=== PATIENT | male | born 1965 | race Caucasian/White ===

== ENCOUNTER 2016-07-10 09:52 | Observation (INO) | payer MEDICAID ==
[2016-07-10] MEDS ORDERED: ONDANSETRON HCL IV 4 MG/2 ML VIAL IVP ONE ×2 (09:58→15:24)
[2016-07-10] MEDS ORDERED: 0.9 % SODIUM CHLORIDE 1,000 ML BAG IV ONE ×2 (09:58→10:37)
--- NOTE | 2016-07-10 10:07 | Emergency Department Record ---
History of Present Illness - General Chief complaint: Vomiting Stated complaint: VOMITING Time Seen by Provider: 07/10/16 09:57 Source: Patient, Family Mode of Arrival: Wheelchair Limitations: No limitations - History of Present Illness Initial comments: 51 yo male presents with vertigo, nausea and vomiting for the last 3 days. He reports many years of vertigo that effect him most of the time. It has been increased the last 3 days causing nausea and vomiting. He has had some associated diarrhea as well. No other new or atypical symptoms. He takes Antivert 4 times daily normally. No fevers. No blood in the vomit or diarrhea. MD complaint: Nausea, Vomiting -: Days(s) (3) Description of Vomiting: Watery Description of Diarrhea: Water Location: Epigastric Radiation: None Quality: Aching Improves with: None Worsens with: Eating Context: Other (long history of vertigo) Associated Symptoms: Malaise, Nausea/vomiting - Related Data Home Medications Medication Instructions Recorded Confirmed Last Taken Nitroglycerin [Nitrostat] 0.4 mg SL ASDIR 09/03/14 07/10/16 Unknown Epinephrine [Epipen] 0.3 mg IM ASDIR PRN 05/05/15 07/10/16 Unknown Ondansetron [Zofran Odt] 4 mg PO Q8H PRN tab NS 08/29/15 07/10/16 Unknown Previous Rx's Medication Instructions Recorded Albuterol Sulfate [Ventolin Hfa] 1 - 2 puff IH .EVERY 4-6 HRS PRN 05/05/15 #1 inhaler Inhaler, Assist Devices [Space 1 each MC ASDIR #1 spacer 05/05/15 Chamber Plus] Allergies Allergy/AdvReac Type Severity Reaction Status Date / Time metformin AdvReac Intermediate HEADACHE Verified 07/10/16 10:01 tiotropium bromide AdvReac Mild nose bleeds Verified 07/10/16 10:01 [From Spiriva with HandiHaler] Review of Systems Constitutional: Denies: Chills, Fever, Malaise, Night sweats, Weakness Eyes: Denies: Eye discharge, Eye pain, Photophobia, Vision change ENT: Denies: Congestion, Throat pain Respiratory: Denies: Cough, Dyspnea, Hemoptysis, Stridor, Wheezes Cardiovascular: Denies: Chest pain, Edema, Palpitations, Syncope Endocrine: Reports: Fatigue Gastrointestinal: Reports: Abdominal pain, Diarrhea, Nausea, Vomiting. Denies: Hematemesis, Hematochezia, Melena Genitourinary: Denies: Dysuria, Frequency, Hematuria Musculoskeletal: Denies: Arthralgia, Back pain, Myalgia, Neck pain Skin: Denies: Bruising, Change in color, Rash Neurological: Reports: Vertigo. Denies: Headache, Numbness, Seizure, Tingling Psychiatric: Denies: Anxiety Hematological/Lymphatic: Denies: Blood Clots, Easy bleeding, Easy bruising, Swollen glands Past Medical History - SOCIAL HISTORY Smoking Status: Current every day smoker - RESPIRATORY Hx Respiratory Disorders: Yes Hx COPD: Yes - CARDIOVASCULAR Hx Cardio Disorders: Yes Comment:: angina - NEURO Hx Neuro Disorders: Yes Hx Dizziness: Yes Hx Headaches: Yes (migraines) - GI Hx GI Disorders: Yes Hx Diverticulitis: Yes Hx Pancreatitis: Yes - Hx Genitourinary Disorders: No Comment:: frequent urination - ENDOCRINE Hx Endocrine Disorders: Yes Hx Diabetes: Yes (type 2) - MUSCULOSKELETAL Hx Musculoskeletal Disorders: Yes Hx Arthritis: Yes - PSYCH Hx Psych Problems: Yes Hx Anxiety: Yes Hx Depression: Yes - HEMATOLOGY/ONCOLOGY Hx Hematology/Oncology Disorders: No Family Medical History Hx Alcohol Use: Mother, Brother/Sister Hx Anxiety: Mother, Brother/Sister, Grandparents Hx Cancer: Grandparents Hx Dementia: Grandparents Hx Depression: Mother, Brother/Sister Hx Diabetes: Mother, Brother/Sister Hx Heart Disease: Mother Hx HTN: Father, Mother, Brother/Sister, Grandparents Hx Resp Disorders: Mother Hx Stroke: Grandparents Physical Exam - General General Appearance: Alert, Oriented x3, Cooperative, No acute distress Limitations: No limitations - Head Head exam: Atraumatic, Normocephalic, Normal inspection - Eye Eye exam: Normal appearance. negative: Conjunctival injection, Periorbital swelling, Scleral icterus - ENT ENT exam: Normal exam, Mucous membranes moist Ear exam: Normal external inspection Nasal Exam: Normal inspection Mouth exam: Normal external inspection Teeth exam: Normal inspection Throat exam: Normal inspection - Neck Neck exam: Normal inspection, Full ROM. negative: Tenderness - Respiratory Respiratory exam: Normal lung sounds bilaterally. negative: Respiratory distress - Cardiovascular Cardiovascular Exam: Regular rate, Normal rhythm, Normal heart sounds Peripheral Pulses: 1+: Radial (R), Radial (L) - GI/Abdominal GI/Abdominal exam: Soft, Tenderness (mild epigastric tenderness). negative: Guarding - Rectal Rectal exam: Deferred - exam: Deferred - Extremities Extremities exam: Normal inspection, Full ROM, Normal capillary refill. negative: Tenderness - Back Back exam: Reports: Normal inspection, Full ROM. Denies: CVA tenderness (R), CVA tenderness (L), Muscle spasm, Rash noted, Tenderness - Neurological Neurological exam: Alert, CN II-XII intact, Oriented X3. negative: Altered, Motor sensory deficit - Psychiatric Psychiatric exam: Normal affect, Normal mood - Skin Skin exam: Dry, Intact, Normal color, Warm Course - Reevaluation(s) Reevaluation #1: The patient was seen and examined with room spinning, nausea and vomiting. He reports a long history of chronic vertigo that he takes Antivert 4 times daily. 07/10/16 10:04 Reevaluation #2: The labs were reviewed. The patient is not acidotic as his pH is 7.43. His glucose is elevated at 391. His HCO3 is normal with a AG of 22 and ketones demonstrating dehydration. WBC on CBC 18. 07/10/16 10:36 The patient reports doing better with improved nausea. He still has some epigastric discomfort. Second liter and GI cocktail ordered. 07/10/16 10:40 Reevaluation #3: The burning resolved with the GI cocktail. His nausea is controlled and will try PO Antivert. 07/10/16 10:57 Reevaluation #4: The patient is still dizzy on standing. HCT ordered. 07/10/16 12:33 The glucose was recheck at 236 the HCT was negative for acute changes. Prior old stable disease noted Given his persistent vertigo recommend admission for symptomatic care until 07/10/16 13:12 Reevaluation #5: I JAYME Mirza of the [facility]. We discussed the case for OBV for intractable vertigo, nausea, hyperglycemia, leukocytosis 07/10/16 13:26 Medical Decision Making - Lab Data Result diagrams: 07/11/16 06:30 07/11/16 06:30 Disposition Disposition: Admit Clinical Impression: Vertigo, Diabetes mellitus, insulin dependent (IDDM), uncontrolled, Hypertension, Nausea and vomiting Disposition: Still a Patient at [facility] Decision to Admit: Admit from ER Decision to Admit Date: 07/10/16 Decision to Admit Time: 13:28 Condition: (1) Good Time of Disposition: 13:28
[2016-07-10 10:10] LABS: BASO % 0.1 % (0-6); HEMATOCRIT 52.4 % (42.0-52.0); HEMOGLOBIN 17.8 gm/dl (14.0-18.0); LYMPH % 8.1 % (16-45); MEAN PLATELET VOLUME 11.5 fl (7.4-10.4); MONO % 6.8 % (0-9); PLATELET COUNT 263 K/uL (130-400); RED BLOOD COUNT 6.39 M/uL (4.40-5.70); RED CELL DISTRIBUTION WIDTH 15.3 % (11.5-14.5); WHITE BLOOD COUNT W/O DIFF 18.4 K/uL (4.2-12.2)
[2016-07-10 10:27] LABS: ALB/GLOB RATIO 1.4 (1.1-1.8); ALBUMIN 5.3 gm/dL (3.5-5.0); ALKALINE PHOSPHATASE 150 U/L (38-126); ALT/SGPT 28 U/L (21-72); ANION GAP 22.1 (7-16); AST/SGOT 27 U/L (17-59); BILIRUBIN,TOTAL 0.98 mg/dL (0.2-1.3); BLOOD UREA NITROGEN 18 mg/dL (9-20); CARBON DIOXIDE 29.9 mmol/L (22-30); CREATININE 0.9 mg/dL (0.66-1.25); EST GLOMERULAR FILTRATION RATE > 60 ml/min; GLUCOSE,RANDOM 391 mg/dL (70-110)
[2016-07-10 10:28] LABS: ACETONE,SERUM POS (NEGATIVE)
[2016-07-10 10:31] LABS: MEAN CORPUSCULAR HEMOGLOBIN 27.8 pg (27-33)
[2016-07-10] MEDS ORDERED: HUMULIN R 100 UNIT/ML VIAL SQ ONE (10:37)
[2016-07-10] MEDS ORDERED: HUMULIN R 100 UNIT/ML VIAL SC ONE (10:37)
[2016-07-10] MEDS ORDERED: MAGNESIUM HYDROXIDE/AL HYDROX 10.0001 ML, LIDOCAINE VISC 2% 200 MG, PHENOBARB/HYOSCY/AT... PO ONE ×3 (10:39)
[2016-07-10] MEDS ORDERED: MECLIZINE 25 MG TABLET PO ONE (10:58)
[2016-07-10] MEDS ORDERED: POTASSIUM BICARB./CIT AC 25 MEQ EFF.TAB PO STA (11:16)
[2016-07-10] MEDS ORDERED: HYDROCODONE/APAP 7.5/325MG TABLET PO ONE (12:39)
[2016-07-10] MEDS ORDERED: IPRATROPIUM/ALBUTEROL (0.5MG/3MG) NEB INH PRN (14:31)
[2016-07-10] MEDS ORDERED: MORPHINE SULFATE 5 MG/ML PFS IVP ONE (15:24)
[2016-07-10] MEDS: SOD CHLOR 0.9% WITH KCL 40MEQ 40 MEQ in 0.9 % SODIUM CHLORIDE 1000ML 1 BAG IV ONE ×2 (16:15→22:46)
[2016-07-10] MEDS: MECLIZINE 25 MG TABLET PO SCH ×2 (18:18→19:59)
[2016-07-10] MEDS: PREGABALIN 100 MG PO SCH ×2 (18:18→23:08)
[2016-07-10] MEDS ORDERED: PREGABALIN 50 MG CAPSULE PO ONE (18:18)
[2016-07-10] MEDS ORDERED: SUCRALFATE 1 G/10 ML UD PO ONE (18:20)
[2016-07-10] MEDS: Non-Formulary MISC (Sucralfate [Carafate] 1 GM) PO SCH ×2 (18:20→23:08)
[2016-07-10] MEDS ORDERED: LORAZEPAM 2 MG/ML VIAL IV PRN (19:07)
[2016-07-10] MEDS: ONDANSETRON HCL IV 4 MG/2 ML VIAL IVP PRN (21:27)
[2016-07-10] MEDS ORDERED: INSULIN GLARGINE HUM REC ANLOG 60 UNIT SQ SCH (22:00)
[2016-07-10] MEDS ORDERED: Non-Formulary MISC (Atorvastatin Calcium [Lipitor] 10 MG) PO SCH (22:00)
[2016-07-10] MEDS ORDERED: Non-Formulary MISC (Budesonide/Formoterol Fumarate [Symbicort 160-4.5 Mcg Inhaler] 2 PUF IH SCH (22:00)
[2016-07-10] MEDS ORDERED: AMITRIPTYLINE HCL 100 MG PO SCH (22:00)
[2016-07-10] MEDS ORDERED: CILOSTAZOL 50 MG PO SCH (22:00)
[2016-07-10] MEDS: RANITIDINE HCL 150 MG TABLET PO SCH (23:06)
[2016-07-10] MEDS: [UNRECOGNIZED DRUG - SUPPLY] MC SCH (23:06)
[2016-07-11] MEDS: RANITIDINE HCL 150 MG TABLET PO SCH ×3 (00:20→11:22)
[2016-07-11] MEDS: Non-Formulary MISC (Sucralfate [Carafate] 1 GM) PO SCH (00:21)
[2016-07-11 00:33] LABS: BARBITURATE SCREEN URINE DETECTED; BENZODIAZEPINE SCREEN URINE NOT DETECTED; METHADONE SCREEN URINE NOT DETECTED; OPIATE SCREEN URINE DETECTED; THC SCREEN URINE DETECTED; TRICYCLIC ANTIDEPRESSANT SCRN DETECTED
[2016-07-11 00:34] LABS: AMPHETAMINE SCREEN URINE NOT DETECTED; COCAINE SCREEN URINE NOT DETECTED; METHAMPHETAMINE SCREEN NOT DETECTED; OXYCODONE SCREEN URINE NOT DETECTED; PHENCYCLIDINE SCREEN URINE NOT DETECTED; PROPOXYPHENE SCREEN URINE NOT DETECTED
[2016-07-11] MEDS: MECLIZINE 25 MG TABLET PO SCH ×2 (02:00→07:46)
[2016-07-11] MEDS: ONDANSETRON HCL IV 4 MG/2 ML VIAL IVP PRN ×2 (04:24→07:44)
[2016-07-11] MEDS: SOD CHLOR 0.9% WITH KCL 40MEQ 40 MEQ in 0.9 % SODIUM CHLORIDE 1000ML 1 BAG IV ONE (06:22)
[2016-07-11 06:47] LABS: BASO % 0.1 % (0-6); EOS % 0.1 % (0-6); GRAN % 78.8 % (47-80); HEMOGLOBIN 15.8 gm/dl (14.0-18.0); LYMPH % 14.8 % (16-45); MEAN CELL VOLUME 85.1 fl (81-97); MEAN CORPUSCULAR HGB CONC 32.9 g/dl (32-36); MEAN PLATELET VOLUME 11.4 fl (7.4-10.4); MONO % 6.2 % (0-9); PLATELET COUNT 218 K/uL (130-400); RED BLOOD COUNT 5.64 M/uL (4.40-5.70); RED CELL DISTRIBUTION WIDTH 14.7 % (11.5-14.5); WHITE BLOOD COUNT W/O DIFF 14.4 K/uL (4.2-12.2)
[2016-07-11 06:57] LABS: ALB/GLOB RATIO 1.5 (1.1-1.8); ALBUMIN 4.4 gm/dL (3.5-5.0); ALKALINE PHOSPHATASE 110 U/L (38-126); ALT/SGPT 34 U/L (21-72); AST/SGOT 24 U/L (17-59); BILIRUBIN,TOTAL 0.61 mg/dL (0.2-1.3); BLOOD UREA NITROGEN 14 mg/dL (9-20); CREATININE 0.8 mg/dL (0.66-1.25); EST GLOMERULAR FILTRATION RATE > 60 ml/min; GLUCOSE,RANDOM 251 mg/dL (70-110); TOTAL PROTEIN 7.3 gm/dL (6.3-8.2)
[2016-07-11] MEDS ORDERED: IBUPROFEN 400 MG TABLET PO PRN (08:36)
[2016-07-11] MEDS ORDERED: PROMETHAZINE HCL IVP PRN (08:36)
--- NOTE | 2016-07-11 08:38 | History & Physical ---
History of Present Illness - Date of Service Date of Service for History & Physical: 07/11/16 - History of Present Illness Admitting Diagnosis: Intractable Nausea, Vertigo, hyperglycemia History of Present Illness: 51 yo male admitted for dehydration and n/v,diarrhea. PMHx of IDDM, alcohol abuse, vertigo, marijuana use, HTN, poly drug use, COPD, smoker 1 ppd x 40 years , peripheral neuropathy. Patient presented to the ED after 2-3 days of worsening vertigo, n/v. aggravated by high sugar levels. Alleviated by anti emetic, rest, fluids. associated symptoms include diarrhea. Upon arrival, HR 117, temp 97.7, BP: 164/ 99, RR 24, oxygen 95% on RA. WBC 18.4, normal H/H, sodium 135, potassium 3.5, BUN 18, Cr. 0.9, glucose 391, alk phos 150, AG 22.1, acetone positive. VB.43. HCO3 normal. UDS positive for opiates, cannabis, barbituates. head CT negative for acute changes. He was started on IVF's and anti emetic therapy. His nausea and abdominal burning improved after a GI cocktail. Patient admitted for continued symptomatic care. 07/11/16: This afternoon, patient is sitting up in his bed comfortably with his brother at bedside. He's requesting to get home. His vertigo is controlled and his n/v/ diarrhea have resolved. He tolerated his entire lunch. His bladder function is normal. Ambulated the garza with his brother. Lives with his brother. Has not had a stool since admission. No CP, SOB, change of cough , MARKS, vision changes, skin changes, dysuria, hematuria, blood in stool, or hematemesis. He admits to occasionally being non compliant with his lantus dose. he's not been checking his sugars at home as his glucometer broke. He takes antivert for vertigo, however once he began to vomit, he wasn't able to keep his medications down. he smokes medical marijuana though denies any other drug use. no recent travel or sick contacts. follows with his PCP at least every 3 months. pcp: deysi arnold NP. Travel Screening - Travel/Exposure Within Last 30 Days Have you traveled within the last 30 days?: No - Travel/Exposure Within Last Year Have you traveled outside the [place] in the last year?: No - Additonal Travel Details Have you been exposed to anyone with a communicable illness?: No - Travel Symptoms Symptom Screening: None Review of Systems Constitutional: Denies: Chills, Fever, Malaise, Night sweats, Weakness Eyes: Denies: Eye discharge, Eye pain, Photophobia, Vision change ENT: Denies: Congestion, Throat pain Respiratory: Denies: Cough, Dyspnea, Hemoptysis, Stridor, Wheezes Cardiovascular: Denies: Chest pain, Edema, Palpitations, Syncope Endocrine: Denies: Fatigue Gastrointestinal: Denies: Abdominal pain, Diarrhea, Hematemesis, Hematochezia, Melena, Nausea, Vomiting Genitourinary: Denies: Dysuria, Frequency, Hematuria Musculoskeletal: Denies: Arthralgia, Back pain, Myalgia, Neck pain Skin: Denies: Bruising, Change in color, Rash Neurological: Denies: Headache, Numbness, Seizure, Tingling, Vertigo Psychiatric: Denies: Anxiety Hematological/Lymphatic: Denies: Blood Clots, Easy bleeding, Easy bruising, Swollen glands Past Medical History - SOCIAL HISTORY Smoking Status: Current every day smoker - RESPIRATORY Hx Respiratory Disorders: Yes Hx COPD: Yes - CARDIOVASCULAR Hx Cardio Disorders: Yes Comment:: angina - NEURO Hx Neuro Disorders: Yes Hx Dizziness: Yes Hx Headaches: Yes (migraines) - GI Hx GI Disorders: Yes Hx Diverticulitis: Yes Hx Pancreatitis: Yes - Hx Genitourinary Disorders: No Comment:: frequent urination - ENDOCRINE Hx Endocrine Disorders: Yes Hx Diabetes: Yes (type 2) - MUSCULOSKELETAL Hx Musculoskeletal Disorders: Yes Hx Arthritis: Yes - PSYCH Hx Psych Problems: Yes Hx Anxiety: Yes Hx Depression: Yes - HEMATOLOGY/ONCOLOGY Hx Hematology/Oncology Disorders: No Family Medical History Hx Alcohol Use: Mother, Brother/Sister Hx Anxiety: Mother, Brother/Sister, Grandparents Hx Cancer: Grandparents Hx Dementia: Grandparents Hx Depression: Mother, Brother/Sister Hx Diabetes: Mother, Brother/Sister Hx Heart Disease: Mother Hx HTN: Father, Mother, Brother/Sister, Grandparents Hx Resp Disorders: Mother Hx Stroke: Grandparents H&P Meds/Allergies - Allergies Allergies: Allergies Allergy/AdvReac Type Severity Reaction Status Date / Time metformin AdvReac Intermediate HEADACHE Verified 07/10/16 10:01 tiotropium bromide AdvReac Mild nose bleeds Verified 07/10/16 10:01 [From Spiriva with HandiHaler] - Home Medications Home Medications Medication Instructions Recorded Confirmed Last Taken Nitroglycerin [Nitrostat] 0.4 mg SL ASDIR 09/03/14 07/10/16 Unknown Epinephrine [Epipen] 0.3 mg IM ASDIR PRN 05/05/15 07/10/16 Unknown Ondansetron [Zofran Odt] 4 mg PO Q8H PRN tab NS 08/29/15 07/10/16 Unknown Previous Rx's Medication Instructions Recorded Albuterol Sulfate [Ventolin Hfa] 1 - 2 puff IH .EVERY 4-6 HRS PRN 05/05/15 #1 inhaler Inhaler, Assist Devices [Space 1 each ASDIR #1 spacer 05/05/15 Chamber Plus] - Active Medications Active Medications: Current Medications Albuterol/Ipratropium (Duoneb) 3 ml INH RESP.Q4H PRN PRN Reason: Wheezing Aspirin (Ecotrin (Ec)) 81 mg PO DAILY [facility] Potassium Chloride/Sodium Chloride 40 meq/ Sodium Chloride 1,000 mls @ 125 mls/ hr IV NOW ONE Stop: 07/10/16 22:30 Last Admin: 07/11/16 06:22 Dose: 125 mls/hr Lorazepam (Ativan) 1 mg IV Q4H PRN PRN Reason: ANXIETY Losartan Potassium (Cozaar) 25 mg PO DAILY [facility] Meclizine HCl (Antivert) 25 mg PO Q6H [facility] Last Admin: 07/11/16 07:46 Dose: 25 mg Non-Formulary Medication (Amitriptyline Hcl [Amitriptyline Hcl]) 100 mg PO QHS [facility] Last Admin: 07/10/16 23:07 Dose: Not Given Non-Formulary Medication (Atorvastatin Calcium [Lipitor]) 10 mg PO QHS [facility] Last Admin: 07/10/16 23:06 Dose: Not Given Non-Formulary Medication (Budesonide/Formoterol Fumarate [Symbicort 160-4.5 Mcg Inhaler]) 2 puff IH BID [facility] Last Admin: 07/10/16 23:06 Dose: Not Given Non-Formulary Medication (Cilostazol [Pletal]) 50 mg PO BID [facility] Last Admin: 07/10/16 23:07 Dose: Not Given Non-Formulary Medication (Insulin Glargine,Hum.Rec.Anlog [Lantus]) 60 unit SQ QHS [facility] Last Admin: 07/10/16 23:08 Dose: Not Given Non-Formulary Medication (Pregabalin [Lyrica]) 100 mg PO TID [facility] Last Admin: 07/10/16 23:08 Dose: Not Given Non-Formulary Medication (Sucralfate [Carafate]) 1 gm PO TID [facility] Last Admin: 07/11/16 00:21 Dose: 1 gm Non-Formulary Medication (Syring W-Ndl,Disp,Insul,0.3 Ml [Insulin Syringe]) 1 each MC BID [facility] Last Admin: 07/10/16 23:06 Dose: Not Given Non-Formulary Medication (Umeclidinium [place] [Incruse Ellipta]) 62.5 mcg IH DAILY [facility] Ondansetron HCl (Zofran) 4 mg IVP Q4H PRN PRN Reason: NAUSEA Last Admin: 07/11/16 07:44 Dose: 4 mg Ranitidine HCl (Zantac) 150 mg PO BID [facility] Last Admin: 07/11/16 00:20 Dose: 150 mg Physical Exam - Vital Signs Vital Signs: Vital Signs - Last 24 Hrs Temp Pulse Resp BP BP Pulse Ox 07/11/16 07:00 97.9 F 92 H 20 187/105 94 L 07/10/16 21:30 93 L 07/10/16 21:20 97.4 F L 103 H 20 148/106 86 L 07/10/16 19:30 20 07/10/16 18:48 112 H 24 07/10/16 15:19 98.2 F 112 H 24 165/103 92 L - General General Appearance: Alert, Oriented x3, Cooperative, No acute distress Limitations: No limitations - Head Head exam: Atraumatic, Normocephalic, Normal inspection - Eye Eye exam: Normal appearance. negative: Conjunctival injection, Periorbital swelling, Scleral icterus - ENT ENT exam: Normal exam, Mucous membranes moist Ear exam: Normal external inspection Nasal Exam: Normal inspection Mouth exam: Normal external inspection Teeth exam: Normal inspection Throat exam: Normal inspection - Neck Neck exam: Normal inspection, Full ROM. negative: Tenderness - Respiratory Respiratory exam: Normal lung sounds bilaterally. negative: Respiratory distress - Cardiovascular Cardiovascular Exam: Regular rate, Normal rhythm, Normal heart sounds Peripheral Pulses: 1+: Radial (R), Radial (L) - GI/Abdominal GI/Abdominal exam: Soft, Normal bowel sounds. negative: Guarding, Tenderness ( mild epigastric tenderness) - Rectal Rectal exam: Deferred - exam: Deferred - Extremities Extremities exam: Normal inspection, Full ROM, Normal capillary refill. negative: Tenderness - Back Back exam: Reports: Normal inspection, Full ROM. Denies: CVA tenderness (R), CVA tenderness (L), Muscle spasm, Rash noted, Tenderness - Neurological Neurological exam: Alert, CN II-XII intact, Oriented X3. negative: Altered, Motor sensory deficit - Psychiatric Psychiatric exam: Normal affect, Normal mood - Skin Skin exam: Dry, Intact, Normal color (multiple generalized tattoos), Warm Results - Labs Result Diagrams: 07/11/16 06:30 07/11/16 06:30 Labs Last 24 Hours: Laboratory Results - last 24 hr 07/10/16 07/10/16 07/10/16 17:00 21:57 22:00 WBC RBC Hgb Hct MCV MCH MCHC RDW Plt Count MPV Gran % Lymphocytes % Monocytes % Eosinophils % Basophils % Sodium Potassium Chloride Carbon Dioxide Anion Gap BUN Creatinine Estimated GFR POC Glucose 207 H 214 H Cancelled Random Glucose Calcium Total Bilirubin AST ALT Alkaline Phosphatase Total Protein Albumin Globulin Albumin/Globulin Ratio Urine Opiates Screen Ur Oxycodone Screen Urine Methadone Screen Ur Propoxyphene Screen Ur Barbituates Screen Ur Tricyclics Screen Ur Phencyclidine Scrn Ur Amphetamine Screen U Methamphetamines Scrn U Benzodiazepines Scrn Urine Cocaine Screen Urine Cannabis Screen 07/11/16 07/11/16 07/11/16 00:20 06:30 06:30 WBC 14.4 H RBC 5.64 Hgb 15.8 Hct 48.0 MCV 85.1 MCH 28.0 MCHC 32.9 RDW 14.7 H Plt Count 218 MPV 11.4 H Gran % 78.8 Lymphocytes % 14.8 L Monocytes % 6.2 Eosinophils % 0.1 Basophils % 0.1 Sodium 138 Potassium 4.4 Chloride 98 Carbon Dioxide 26.0 Anion Gap 14.0 BUN 14 Creatinine 0.8 Estimated GFR > 60 POC Glucose Random Glucose 251 H Calcium 8.8 Total Bilirubin 0.61 AST 24 ALT 34 Alkaline Phosphatase 110 Total Protein 7.3 Albumin 4.4 Globulin 2.9 Albumin/Globulin Ratio 1.5 Urine Opiates Screen Detected Ur Oxycodone Screen Not detected Urine Methadone Screen Not detected Ur Propoxyphene Screen Not detected Ur Barbituates Screen Detected Ur Tricyclics Screen Detected Ur Phencyclidine Scrn Not detected Ur Amphetamine Screen Not detected U Methamphetamines Scrn Not detected U Benzodiazepines Scrn Not detected Urine Cocaine Screen Not detected Urine Cannabis Screen Detected VTE H&P Assessment - Risk for VTE Risk for VTE: No Risk Level: Low Risk Assessment Date: 07/11/16 Risk Assessment Time: 12:00 VTE Orders Placed or Will Be Placed: No VTE Reason for No Prophylaxis: Not Indicated Plan - Detailed Diagnosis and Plan (1) Diabetes mellitus, insulin dependent (IDDM), uncontrolled Current Visit: Yes Status: Acute Base Code: E10.65 - TYPE 1 DIABETES MELLITUS WITH HYPERGLYCEMIA Comment: 07/11/16: - AG 22, but normal bicarb upon admission - insulin administered in the ER - glucose 188 in the am - accuck qachs - tolerated advancement of diet without issue - will f/up with Deysi Arnold next week (2) Hypertension Current Visit: Yes Status: Acute Base Code: I10 - ESSENTIAL (PRIMARY) HYPERTENSION Comment: 07/11/16: continue home medicaitons (Cozaar 25 mg PO daily). (3) Nausea and vomiting Current Visit: Yes Status: Acute Base Code: R11.2 - NAUSEA WITH VOMITING , UNSPECIFIED Comment: 07/11/16: - anti emetic therapy prn. - improve glucose control (4) Vertigo Current Visit: Yes Status: Acute Base Code: R42 - DIZZINESS AND GIDDINESS Comment: 07/11/16: -head CT neg for acute changes. - continue home medication - treat n/v with anti emetic therapy - correct sugar levels. (5) DVT prophylaxis Current Visit: No Status: Acute Base Code: [id number] - Comment: 07/11/16: low risk. ambulation encouraged w/ assistance. (6) Full code status Current Visit: Yes Status: Acute Base Code: Z78.9 - OTHER SPECIFIED HEALTH STATUS Comment: 07/11/16: patient full code
[2016-07-11] MEDS: LOSARTAN POTASSIUM 25 MG TABLET PO SCH ×2 (08:44→11:21)
[2016-07-11] MEDS: ASPIRIN 81 MG TABEC PO SCH ×2 (08:45→11:21)
[2016-07-11] MEDS: SUCRALFATE 1 G/10 ML UD PO SCH ×2 (08:45→11:21)
[2016-07-11] MEDS: PREGABALIN 50 MG CAPSULE PO SCH ×2 (08:46→11:21)
[2016-07-11] MEDS: PATIENT OWN MED: PO SCH ×2 (08:53→11:21)
[2016-07-11] MEDS ORDERED: UMECLIDINIUM BROMIDE 62.5 MCG IH SCH (10:00)
[2016-07-11] MEDS: [UNRECOGNIZED DRUG - SUPPLY] MC SCH (11:22)
--- NOTE | 2016-07-11 14:30 | Discharge Summary ---
Providers Discharge Summary Date: 07/11/16 Date of admission: 07/10/16 14:13 Expected Date of Discharge: 07/11/16 Attending physician: DERECK GALLEGOS Primary care physician: Deysi Tran N.P. Physical Exam - Vital Signs Vital Signs: Vital Signs - Last 24 Hrs Temp Pulse Resp BP BP Pulse Ox 07/11/16 11:55 98.1 F 101 H 20 145/96 94 L 07/11/16 09:00 92 H 20 07/11/16 07:00 97.9 F 92 H 20 187/105 94 L 07/10/16 21:30 93 L 07/10/16 21:20 97.4 F L 103 H 20 148/106 86 L 07/10/16 19:30 20 07/10/16 18:48 112 H 24 07/10/16 15:19 98.2 F 112 H 24 165/103 92 L - General General Appearance: Alert, Oriented x3, Cooperative, No acute distress Limitations: No limitations - Head Head exam: Atraumatic, Normocephalic, Normal inspection - Eye Eye exam: Normal appearance. negative: Conjunctival injection, Periorbital swelling, Scleral icterus - ENT ENT exam: Normal exam, Mucous membranes moist Ear exam: Normal external inspection Nasal Exam: Normal inspection Mouth exam: Normal external inspection Teeth exam: Normal inspection Throat exam: Normal inspection - Neck Neck exam: Normal inspection, Full ROM. negative: Tenderness - Respiratory Respiratory exam: Normal lung sounds bilaterally. negative: Respiratory distress - Cardiovascular Cardiovascular Exam: Regular rate, Normal rhythm, Normal heart sounds Peripheral Pulses: 1+: Radial (R), Radial (L) - GI/Abdominal GI/Abdominal exam: Soft, Normal bowel sounds. negative: Guarding, Tenderness ( mild epigastric tenderness) - Rectal Rectal exam: Deferred - exam: Deferred - Extremities Extremities exam: Normal inspection, Full ROM, Normal capillary refill. negative: Tenderness - Back Back exam: Reports: Normal inspection, Full ROM. Denies: CVA tenderness (R), CVA tenderness (L), Muscle spasm, Rash noted, Tenderness - Neurological Neurological exam: Alert, CN II-XII intact, Oriented X3. negative: Altered, Motor sensory deficit - Psychiatric Psychiatric exam: Normal affect, Normal mood - Skin Skin exam: Dry, Intact, Normal color (multiple generalized tattoos), Warm Hospitalization - Hospitalization Admission Diagnosis: Intractable Nausea, Vertigo, hyperglycemia - Problem List/Discharge Diagnosis (1) Diabetes mellitus, insulin dependent (IDDM), uncontrolled Current Visit: Yes Status: Acute Base Code: E10.65 - TYPE 1 DIABETES MELLITUS WITH HYPERGLYCEMIA Comment: 07/11/16: - AG 22, but normal bicarb upon admission - continue home lantus dose - glucose 188 in the am - accuck qachs - tolerated advancement of diet without issue. diabetic diet as tolerated. - will f/up with Deysi Helm next week. call tuesday to schedule an appt. Return sooner re any new or worsneing symptoms (2) Hypertension Current Visit: Yes Status: Acute Base Code: I10 - ESSENTIAL (PRIMARY) HYPERTENSION Comment: 07/11/16: continue home medicaitons (Cozaar 25 mg PO daily, HCTZ). (3) Nausea and vomiting Current Visit: Yes Status: Acute Base Code: R11.2 - NAUSEA WITH VOMITING , UNSPECIFIED Comment: 07/11/16: - anti emetic therapy prn. - improve glucose control - begin monitoring glucose level at home. (4) Vertigo Current Visit: Yes Status: Acute Base Code: R42 - DIZZINESS AND GIDDINESS Comment: 07/11/16: -head CT neg for acute changes. - continue home medications - treat n/v with anti emetic therapy - be sure to take correct insulin dose. - diabetic diet. (5) Full code status Current Visit: Yes Status: Acute Base Code: Z78.9 - OTHER SPECIFIED HEALTH STATUS Comment: 07/11/16: patient full code - Hospitalization Course Disposition: Home, Self-Care Hospital Course: 51 yo male admitted for dehydration and n/v,diarrhea. PMHx of IDDM, alcohol abuse, vertigo, marijuana use, HTN, poly drug use, COPD, smoker 1 ppd x 40 years , peripheral neuropathy. Patient presented to the ED after 2-3 days of worsening vertigo, n/v. aggravated by high sugar levels. Alleviated by anti emetic, rest, fluids. associated symptoms include diarrhea. Upon arrival, HR 117, temp 97.7, BP: 164/ 99, RR 24, oxygen 95% on RA. WBC 18.4, normal H/H, sodium 135, potassium 3.5, BUN 18, Cr. 0.9, glucose 391, alk phos 150, AG 22.1, acetone positive. VB.43. HCO3 normal. UDS positive for opiates, cannabis, barbituates. head CT negative for acute changes. He was started on IVF's and anti emetic therapy. His nausea and abdominal burning improved after a GI cocktail. Patient admitted for continued symptomatic care. 07/11/16: This afternoon, patient is sitting up in his bed comfortably with his brother at bedside. He's requesting to get home. His vertigo is controlled and his n/v/ diarrhea have resolved. He tolerated his entire lunch. His bladder function is normal. Ambulated the garza with his brother. Lives with his brother. Has not had a stool since admission. No CP, SOB, change of cough , MARKS, vision changes, skin changes, dysuria, hematuria, blood in stool, or hematemesis. He admits to occasionally being non compliant with his lantus dose. he's not been checking his sugars at home as his glucometer broke. He takes antivert for vertigo, however once he began to vomit, he wasn't able to keep his medications down. he smokes medical marijuana though denies any other drug use. no recent travel or sick contacts. follows with his PCP at least every 3 months. pcp: deysi helm NP. Abnormal Labs: Abnormal Lab Results 07/10/16 07/10/16 07/11/16 Range/Units 17:00 21:57 06:30 WBC 14.4 H (4.2-12.2) K/uL RDW 14.7 H (11.5-14.5) % MPV 11.4 H (7.4-10.4) fl Lymphocytes % 14.8 L (16-45) % POC Glucose 207 H 214 H (70-110) mg/dL Random Glucose (70-110) mg/dL 07/11/16 07/11/16 Range/Units 06:30 11:45 WBC (4.2-12.2) K/uL RDW (11.5-14.5) % MPV (7.4-10.4) fl Lymphocytes % (16-45) % POC Glucose 188 H (70-110) mg/dL Random Glucose 251 H (70-110) mg/dL Condition at Discharge: (1) Good Discharge Medications - Discharge Medications Prescriptions: Budesonide/Formoterol Fumarate [Symbicort 160-4.5 Mcg Inhaler] 2 puff IH BID #1 puff Home Medications: Ambulatory Orders Nitroglycerin [Nitrostat] 0.4 mg SL ASDIR 09/03/14 [Last Taken Unknown] Albuterol Sulfate [Ventolin Hfa] 1 - 2 puff IH .EVERY 4-6 HRS PRN #1 inhaler [Last Taken Unknown] Epinephrine [Epipen] 0.3 mg IM ASDIR PRN 05/05/15 [Last Taken Unknown] Inhaler, Assist Devices [Space Chamber Plus] 1 each MC ASDIR #1 spacer 05/05/15 [Last Taken Unknown] Ondansetron [Zofran Odt] 4 mg PO Q8H PRN tab NS 08/29/15 [Last Taken Unknown] Budesonide/Formoterol Fumarate [Symbicort 160-4.5 Mcg Inhaler] 2 puff IH BID #1 puff 07/11/16 [Last Taken Unknown] Discharge Plan - Discharge Instructions Activity at Discharge: Increase Activity as Tolerated Diet at Discharge: Diabetic Diet
--- NOTE | 2016-07-13 08:51 | CT SCAN REPORT ---
EXAM: HEAD CT HISTORY: DIZZINESS, PASSING OUT FOR THREE DAYS. TECHNIQUE: Noncontrast CT of the head was obtained. Comparison: 09/12/14. FINDINGS: The ventricles and subarachnoid spaces are unremarkable. There is no mass or mass effect. No intra or extraaxial hemorrhage seen. No CT evidence for large acute territorial infarct. There are some areas of hypodensity in the white matter likely due to chronic small vessel ischemic change. There is a prominent perivascular space versus old lacunar infarct in the left basal ganglia unchanged. There is a polyp or retention cyst in the inferior aspects of both maxillary sinuses. The sinuses are otherwise clear. There is no fracture or acute osseous abnormality identified. IMPRESSION: 1. ATROPHY AND CHRONIC SMALL VESSEL ISCHEMIC CHANGES. 2. 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 3. NO MASS, HEMORRHAGE, OR ACUTE INTRACRANIAL PROCESS. JOB NUMBER: [id number] MTDD
== END 2016-07-11 15:15 | disposition home or self-care (01) ==
LOC: ER 09:52 → MEDSURG 14:13
PROVIDERS: ADMIT Family Medicine; ATTEND Family Medicine
DX: E86.0 Dehydration (principal); J44.9 Chronic obstructive pulmonary disease, unspecified; Z79.899 Other long term (current) drug therapy; I10 Essential (primary) hypertension; R42 Dizziness and giddiness; Z78.9 Other specified health status
CPT/HCPCS: 99285 ×2; 96374; 82800; 85025; 80053 ×2; 36416 ×2; 82009; 82948 ×2; 85027; 70450; 94760; G0378 ×2; G0480; G0477; J2405; J3490; J1815; J2270; 80320; 99220; J2550; J7030

== ENCOUNTER 2016-07-12 06:59 | Inpatient (IN) | payer MEDICAID ==
[2016-07-12] MEDS ORDERED: MAGNESIUM HYDROXIDE/AL HYDROX 10.0001 ML, LIDOCAINE VISC 2% 200 MG, PHENOBARB/HYOSCY/AT... PO ONE ×3 (07:07)
[2016-07-12] MEDS ORDERED: PROMETHAZINE HCL 25 MG/ML VIAL IV ONE (07:07)
[2016-07-12] MEDS ORDERED: DIPHENHYDRAMINE HCL IV 50 MG/ML VIAL IVP ONE (07:07)
--- NOTE | 2016-07-12 07:15 | Emergency Department Record ---
History of Present Illness - General Chief Complaint: Abdominal Pain Stated Complaint: ABDOMINAL PAIN Time Seen by Provider: 07/12/16 07:05 Source: Patient Mode of Arrival: Ambulatory Limitations: No limitations - History of Present Illness Initial Comments: 51 yo male presents with epigastric burning, nausea, vomiting and dizziness. He was discharged yesterday from [facility] after admission for vertigo, nausea, vomiting, and hyperglycemia. He was improved yesterday and tolerated a small meal at the hospital prior to DC. His symptoms returned about 4am. No fevers. No blood in the vomit. No chest pain. At home last night he had eaten very little. He had some mashed potatoes for dinner. He has been unable to tolerate his medications. PCP Vandana Arnold. PSHx are for Gallbladder (at [facility]) and colon resection for diverticulitis. The patient has been admitted in the past for similar symptoms in 08/2014. He does not recall the last endoscopy. MD Complaint: Abdominal pain Onset/Timin -: Days(s) Location: Periumbilical Radiation: None Migration to: No migration Severity: Severe Quality: Burning Consistency: Constant Improves With: Nothing Worsens With: Nothing Associated Symptoms: Nausea - Related Data Home Medications Medication Instructions Recorded Confirmed Last Taken Nitroglycerin [Nitrostat] 0.4 mg SL ASDIR 09/03/14 07/12/16 Unknown Epinephrine [Epipen] 0.3 mg IM ASDIR PRN 05/05/15 07/12/16 Unknown Previous Rx's Medication Instructions Recorded Albuterol Sulfate [Ventolin Hfa] 1 - 2 puff IH .EVERY 4-6 HRS PRN 05/05/15 #1 inhaler Inhaler, Assist Devices [Space 1 each ASDIR #1 spacer 05/05/15 Chamber Plus] Budesonide/Formoterol Fumarate 2 puff IH BID #1 puff 07/11/16 [Symbicort 160-4.5 Mcg Inhaler] Allergies Allergy/AdvReac Type Severity Reaction Status Date / Time bee pollen Allergy HIVES Verified 07/12/16 07:11 egg Allergy HIVES Verified 07/12/16 07:11 metformin AdvReac Intermediate HEADACHE Verified 07/12/16 07:09 tiotropium bromide AdvReac Mild nose bleeds Verified 07/12/16 07:09 [From Spiriva with HandiHaler] Travel Screening - Travel/Exposure Within Last 30 Days Have you traveled within the last 30 days?: No Review of Systems Constitutional: Denies: Chills, Fever, Malaise, Night sweats, Weakness Eyes: Denies: Eye discharge, Eye pain, Photophobia, Vision change ENT: Denies: Congestion Respiratory: Denies: Cough, Dyspnea, Hemoptysis, Stridor, Wheezes Cardiovascular: Denies: Chest pain, Palpitations Endocrine: Denies: Fatigue, Polydipsia, Polyuria Gastrointestinal: Reports: As per HPI, Abdominal pain, Nausea, Vomiting. Denies : Diarrhea Genitourinary: Denies: Dysuria, Frequency, Hematuria Musculoskeletal: Denies: Arthralgia, Back pain, Joint swelling, Myalgia, Neck pain Skin: Denies: Bruising, Change in color, Rash Neurological: Reports: Vertigo. Denies: Confusion, Headache Psychiatric: Denies: Anxiety Hematological/Lymphatic: Denies: Anemia, Blood Clots, Easy bleeding, Easy bruising, Swollen glands Past Medical History - SOCIAL HISTORY Smoking Status: Current every day smoker - RESPIRATORY Hx Respiratory Disorders: Yes Hx COPD: Yes - CARDIOVASCULAR Hx Cardio Disorders: Yes Comment:: angina - NEURO Hx Neuro Disorders: Yes Hx Dizziness: Yes Hx Headaches: Yes (migraines) - GI Hx GI Disorders: Yes Hx Diverticulitis: Yes Hx Pancreatitis: Yes - Hx Genitourinary Disorders: No Comment:: frequent urination - ENDOCRINE Hx Endocrine Disorders: Yes Hx Diabetes: Yes (type 2) - MUSCULOSKELETAL Hx Musculoskeletal Disorders: Yes Hx Arthritis: Yes - PSYCH Hx Psych Problems: Yes Hx Anxiety: Yes Hx Depression: Yes - HEMATOLOGY/ONCOLOGY Hx Hematology/Oncology Disorders: No Family Medical History Hx Alcohol Use: Mother, Brother/Sister Hx Anxiety: Mother, Brother/Sister, Grandparents Hx Cancer: Grandparents Hx Dementia: Grandparents Hx Depression: Mother, Brother/Sister Hx Diabetes: Mother, Brother/Sister Hx Heart Disease: Mother Hx HTN: Father, Mother, Brother/Sister, Grandparents Hx Resp Disorders: Mother Hx Stroke: Grandparents Physical Exam - General General Appearance: Alert, Oriented x3, Cooperative, No acute distress Limitations: No limitations - Head Head exam: Normal inspection - Eye Eye exam: Normal appearance, PERRL. negative: Conjunctival injection - ENT ENT exam: Normal exam, Mucous membranes moist Ear exam: Normal external inspection Nasal Exam: Normal inspection Mouth exam: Normal external inspection Teeth exam: Normal inspection Throat exam: Normal inspection - Neck Neck exam: Normal inspection, Full ROM. negative: Tenderness - Respiratory Respiratory exam: Normal lung sounds bilaterally. negative: Respiratory distress - Cardiovascular Cardiovascular Exam: Regular rate, Normal rhythm, Normal heart sounds - GI/Abdominal GI/Abdominal exam: Soft, Tenderness (epigastric area tender but very soft) - Rectal Rectal exam: Deferred - exam: Deferred - Extremities Extremities exam: Normal inspection, Full ROM, Normal capillary refill. negative: Tenderness - Back Back exam: Reports: Normal inspection, Full ROM. Denies: Muscle spasm, Rash noted, Tenderness - Neurological Neurological exam: Alert, Normal gait, Oriented X3 - Psychiatric Psychiatric exam: Normal affect, Normal mood - Skin Skin exam: Dry, Intact, Normal color, Warm Course Vital Signs 07/12/16 07:02 Temperature 97.8 F Pulse Rate 104 H Respiratory 20 Rate Blood Pressure 175/117 Pulse Ox 100 - Reevaluation(s) Reevaluation #1: EMR reviewed from admission/discharge 07/12/16 07:11 Reevaluation #2: The patient was rechecked after the Phenergan. He is having persistent dry heaves. Zofran added as well. He has had a few streaks of blood with the watery mucous like emesis. 07/12/16 07:41 The labs were reviewed WBC 12.6 Hgb 17 No acute changes to the LFT, Lipase Glucose 262 07/12/16 07:54 07/12/16 07:54 Reevaluation #3: Nausea persists. BP remains elevated. Phenergan, Hydralazine, EKG ordered Pt has tolerated a small amount of oral contrast for the CT scan 07/12/16 08:25 07/12/16 08:27 Reevaluation #4: BP 194/111 Still with epigastric pain, nausea. NO dry heaves or vomiting. 07/12/16 09:17 Reevaluation #5: CT of the abdomen reviewed Diverticulosis without diverticulitis. No acute intraabdominal process. 07/12/16 10:50 - Consultations Consultation #1: Lucy ARREGUIN She accepts for admission for intractable NV Procedures - EKG Initial Date: 07/12/16 Time: 08:42 EKG: Unchanged From Previous (09/03/14) EKG Detail: Rate98, Int [id number], Sinus, [place] R, RBBB, ST NS changes Medical Decision Making - Lab Data Result diagrams: 07/12/16 07:15 07/12/16 07:15 Disposition Disposition: Admit Clinical Impression: Nausea and vomiting, Vertigo, Hypertensive urgency Disposition: Still a Patient at [facility] Decision to Admit: Admit from ER Decision to Admit Date: 07/12/16 Decision to Admit Time: 11:05 Condition: (2) Stable Forms: Patient Portal Access Time of Disposition: 11:05
[2016-07-12] MEDS: 0.9 % SODIUM CHLORIDE 1,000 ML BAG IV ONE ×2 (07:19→09:21)
[2016-07-12] MEDS ORDERED: ONDANSETRON HCL IV 4 MG/2 ML VIAL IVP ONE ×2 (07:33→09:16)
[2016-07-12 07:35] LABS: BASO % 0.2 % (0-6); EOS % 0.8 % (0-6); GRAN % 75.7 % (47-80); HEMATOCRIT 49.7 % (42.0-52.0); LYMPH % 16.6 % (16-45); MEAN CORPUSCULAR HGB CONC 34.2 g/dl (32-36); MEAN PLATELET VOLUME 11.4 fl (7.4-10.4); MONO % 6.7 % (0-9); PLATELET COUNT 227 K/uL (130-400); RED BLOOD COUNT 5.99 M/uL (4.40-5.70); RED CELL DISTRIBUTION WIDTH 14.3 % (11.5-14.5); WHITE BLOOD COUNT W/O DIFF 12.6 K/uL (4.2-12.2)
[2016-07-12 07:37] LABS: MEAN CORPUSCULAR HEMOGLOBIN 28.3 pg (27-33)
[2016-07-12] MEDS ORDERED: LORAZEPAM 2 MG/ML VIAL IV ONE (07:39)
[2016-07-12] MEDS ORDERED: PANTOPRAZOLE SODIUM IV 40 MG VIAL IVP ONE (07:42)
[2016-07-12 07:49] LABS: ALBUMIN 4.8 gm/dL (3.5-5.0); ALKALINE PHOSPHATASE 131 U/L (38-126); ALT/SGPT 38 U/L (21-72); ANION GAP 18.9 (7-16); AST/SGOT 30 U/L (17-59); BILIRUBIN,TOTAL 0.95 mg/dL (0.2-1.3); BLOOD UREA NITROGEN 11 mg/dL (9-20); CARBON DIOXIDE 22.1 mmol/L (22-30); CREATININE 0.7 mg/dL (0.66-1.25); EST GLOMERULAR FILTRATION RATE > 60 ml/min; GLUCOSE,RANDOM 262 mg/dL (70-110); LIPASE 263 U/L (23-300)
[2016-07-12 08:14] LABS: URINE APPEARANCE CLEAR; URINE BILIRUBIN NEGATIVE (NEGATIVE); URINE BLOOD TRACE-I (NEGATIVE); URINE COLOR YELLOW; URINE KETONE 15 mg/dL (NEGATIVE); URINE LEUKOCYTE ESTERASE NEGATIVE (NEGATIVE); URINE NITRITE NEGATIVE (NEGATIVE); URINE PROTEIN TRACE (NEGATIVE); URINE UROBILINOGEN 0.2 E.U./dL (0.20 - 1.00)
[2016-07-12 08:15] LABS: URINE GLUCOSE (UA) >=1000 mg/dL (NEGATIVE)
[2016-07-12 08:22] LABS: URINE EPITHELIAL CELLS NONE SEEN (FEW); URINE RBC 0 - 2 (NONE SEEN); URINE WBC NONE SEEN (0-2/hpf)
[2016-07-12] MEDS ORDERED: HYDRALAZINE 20MG/ML VIAL IV ONE ×2 (08:24→10:37)
[2016-07-12] MEDS ORDERED: PROMETHAZINE HCL 25 MG/ML VIAL IVP ONE (08:24)
[2016-07-12] MEDS ORDERED: MORPHINE SULFATE 5 MG/ML PFS IVP ONE (09:16)
[2016-07-12] MEDS ORDERED: HYDRALAZINE 20MG/ML VIAL IV PRN (12:14)
[2016-07-12] MEDS ORDERED: MORPHINE SULFATE 5 MG/ML PFS IVP PRN (12:14)
[2016-07-12] MEDS: MECLIZINE 25 MG TABLET PO SCH ×2 (12:58→18:12)
[2016-07-12] MEDS: 0.9 % SODIUM CHLORIDE 1000ML 1,000 ML IV PRN ×2 (13:02→21:37)
[2016-07-12] MEDS: PROMETHAZINE HCL 25 MG/ML VIAL IVP PRN ×3 (14:20→23:43)
[2016-07-12] MEDS ORDERED: PROPOFOL 10 MG/ML VIAL IV ONE (14:29)
[2016-07-12] MEDS: ONDANSETRON HCL IV 4 MG/2 ML VIAL IVP PRN ×2 (15:54→21:36)
[2016-07-12] MEDS: SUCRALFATE 1 G/10 ML UD PO SCH ×2 (15:56→22:56)
[2016-07-12] MEDS: PREGABALIN 50 MG CAPSULE PO SCH ×2 (15:56→22:57)
[2016-07-12] MEDS ORDERED: LEVEMIR FLEXTOUCH 100 UNIT/ML INSULIN PEN SQ SCH (22:00)
[2016-07-12] MEDS: AMITRIPTYLINE 25 MG TABLET PO SCH (22:57)
[2016-07-12] MEDS: CILOSTAZOL 50 MG PO SCH (22:57)
[2016-07-13] MEDS: MECLIZINE 25 MG TABLET PO SCH ×5 (01:12→23:18)
[2016-07-13] MEDS ORDERED: NOVOLOG FLEXPEN (INSULIN ASPART) 100 UNITS/ML SQ ONE (01:45)
[2016-07-13] MEDS: METOCLOPRAMIDE HCL 10 MG/2 ML VIAL IVP PRN ×3 (03:00→22:39)
[2016-07-13] MEDS: 0.9 % SODIUM CHLORIDE 1000ML 1,000 ML IV PRN ×4 (05:23→22:41)
[2016-07-13 06:29] LABS: BASO % 0.2 % (0-6); EOS % 1.6 % (0-6); GRAN % 69.5 % (47-80); HEMATOCRIT 45.6 % (42.0-52.0); HEMOGLOBIN 15.7 gm/dl (14.0-18.0); LYMPH % 21.2 % (16-45); MEAN CELL VOLUME 82.6 fl (81-97); MEAN CORPUSCULAR HEMOGLOBIN 28.4 pg (27-33); MEAN CORPUSCULAR HGB CONC 34.4 g/dl (32-36); MEAN PLATELET VOLUME 11.6 fl (7.4-10.4); MONO % 7.5 % (0-9); PLATELET COUNT 186 K/uL (130-400); RED BLOOD COUNT 5.52 M/uL (4.40-5.70); RED CELL DISTRIBUTION WIDTH 14.1 % (11.5-14.5); WHITE BLOOD COUNT W/O DIFF 9.4 K/uL (4.2-12.2)
[2016-07-13 06:48] LABS: ALB/GLOB RATIO 1.4 (1.1-1.8); ALBUMIN 3.7 gm/dL (3.5-5.0); ALKALINE PHOSPHATASE 91 U/L (38-126); ALT/SGPT 32 U/L (21-72); ANION GAP 9.3 (7-16); AST/SGOT 19 U/L (17-59); BLOOD UREA NITROGEN 10 mg/dL (9-20); CARBON DIOXIDE 22.7 mmol/L (22-30); CREATININE 0.7 mg/dL (0.66-1.25); EST GLOMERULAR FILTRATION RATE > 60 ml/min; GLUCOSE,RANDOM 182 mg/dL (70-110); TOTAL PROTEIN 6.3 gm/dL (6.3-8.2)
--- NOTE | 2016-07-13 09:01 | CT SCAN REPORT ---
EXAM: CT OF THE ABDOMEN AND PELVIS HISTORY: UPPER ABDOMINAL PAIN, NAUSEA AND VOMITING. TECHNIQUE: CT of the abdomen and pelvis was performed following intravenous contrast administration. 100 ml of Omnipaque 300 contrast was used for this examination. Comparison: None. FINDINGS: There is minor dependent congestive change at the lung bases. The lung bases otherwise are unremarkable. The liver and spleen are unremarkable. No pancreatic mass or inflammatory change. The bile ducts are not dilated. The gallbladder is surgically absent. There is no adrenal lesion seen. There is bilateral renal function. No renal mass or hydronephrosis. There is no aortic aneurysm. No periaortic mass or adenopathy. There are atherosclerotic changes in the abdominal aorta. There are no dilated bowel loops. The appendix is unremarkable. There is diverticulosis without CT evidence for diverticulitis. No pelvic mass, abscess , or adenopathy. There is no free air or free fluid identified. IMPRESSION: 1. THERE IS DIVERTICULOSIS WITHOUT CT EVIDENCE FOR DIVERTICULITIS. 2. PRIOR CHOLECYSTECTOMY. 3. NO ACUTE ABDOMINAL OR PELVIC PROCESS IDENTIFIED. 4. OTHER CHRONIC FINDINGS ABOVE. JOB NUMBER: [id number] [facility]
[2016-07-13] MEDS: PROMETHAZINE HCL 25 MG/ML VIAL IVP PRN ×2 (09:46→20:03)
--- NOTE | 2016-07-13 09:47 | History & Physical ---
History of Present Illness - Date of Service Date of Service for History & Physical: 07/15/16 - History of Present Illness Admitting Diagnosis: Intractable vomiting, hypertension History of Present Illness: 49 yo M w hx of T2DM, chronic pancreatic, COPD, HTN, vertigo presenting with N/V /abdominal pain and dizziness. He states he started having symptoms yesterday after being discharged from [facility] on 07/11 for vertigo, nausea, vomiting, and hyperglycemia.He was improved yesterday and tolerated a small meal at the hospital prior to DC. His symptoms returned about 4am. No fevers. No blood in the vomit. No chest pain. At home last night he had eaten very little. He had some mashed potatoes for dinner. He has been unable to tolerate his medications. In ER patient persisted to have dry heaves and nausea despite phenergan and zofran. Hydralazine ordered for high blood pressure. CT abdomen showed diverticulosis without diverticulitis. PMHx of IDDM, alcohol abuse, vertigo, marijuana use, HTN, poly drug use, COPD, smoker 1 ppd x 40 years, peripheral neuropathy. PSHx are for Gallbladder (at [facility]) and colon resection for diverticulitis. PCP: Maricruz Arnold NP. Note from 07/11 Patient presented to the ED after 2-3 days of worsening vertigo, n/v. aggravated by high sugar levels. Alleviated by anti emetic, rest, fluids. associated symptoms include diarrhea. Upon arrival, HR 117, temp 97.7, BP: 164/ 99, RR 24, oxygen 95% on RA. WBC 18.4, normal H/H, sodium 135, potassium 3.5, BUN 18, Cr. 0.9, glucose 391, alk phos 150, AG 22.1, acetone positive. VB.43. HCO3 normal. UDS positive for opiates, cannabis, barbituates. head CT negative for acute changes. He was started on IVF's and anti emetic therapy. His nausea and abdominal burning improved after a GI cocktail. Patient admitted for continued symptomatic care. 07/11/16: This afternoon, patient is sitting up in his bed comfortably with his brother at bedside. He's requesting to get home. His vertigo is controlled and his n/v/ diarrhea have resolved. He tolerated his entire lunch. His bladder function is normal. Ambulated the garza with his brother. Lives with his brother. Has not had a stool since admission. No CP, SOB, change of cough , MARKS, vision changes, skin changes, dysuria, hematuria, blood in stool, or hematemesis. He admits to occasionally being non compliant with his lantus dose. he's not been checking his sugars at home as his glucometer broke. He takes antivert for vertigo, however once he began to vomit, he wasn't able to keep his medications down. he smokes medical marijuana though denies any other drug use. no recent travel or sick contacts. follows with his PCP at least every 3 months. Travel Screening - Travel/Exposure Within Last 30 Days Have you traveled within the last 30 days?: No - Travel/Exposure Within Last Year Have you traveled outside the [place] in the last year?: No - Additonal Travel Details Have you been exposed to anyone with a communicable illness?: No Review of Systems Constitutional: Denies: Chills, Fever, Malaise, Night sweats, Weakness Eyes: Denies: Eye discharge, Eye pain, Photophobia, Vision change ENT: Denies: Congestion Respiratory: Denies: Cough, Dyspnea, Hemoptysis, Stridor, Wheezes Cardiovascular: Denies: Chest pain, Palpitations Endocrine: Denies: Fatigue, Polydipsia, Polyuria Gastrointestinal: Reports: As per HPI, Abdominal pain, Nausea, Vomiting. Denies : Diarrhea Genitourinary: Denies: Dysuria, Frequency, Hematuria Musculoskeletal: Denies: Arthralgia, Back pain, Joint swelling, Myalgia, Neck pain Skin: Denies: Bruising, Change in color, Rash Neurological: Reports: Vertigo. Denies: Confusion, Headache Psychiatric: Denies: Anxiety Hematological/Lymphatic: Denies: Anemia, Blood Clots, Easy bleeding, Easy bruising, Swollen glands Past Medical History - SOCIAL HISTORY Smoking Status: Current every day smoker - RESPIRATORY Hx Respiratory Disorders: Yes Hx COPD: Yes - CARDIOVASCULAR Hx Cardio Disorders: Yes Comment:: angina - NEURO Hx Neuro Disorders: Yes Hx Dizziness: Yes Hx Headaches: Yes (migraines) - GI Hx GI Disorders: Yes Hx Diverticulitis: Yes Hx Pancreatitis: Yes - Hx Genitourinary Disorders: No Comment:: frequent urination - ENDOCRINE Hx Endocrine Disorders: Yes Hx Diabetes: Yes (type 2) - MUSCULOSKELETAL Hx Musculoskeletal Disorders: Yes Hx Arthritis: Yes - PSYCH Hx Psych Problems: Yes Hx Anxiety: Yes Hx Depression: Yes - HEMATOLOGY/ONCOLOGY Hx Hematology/Oncology Disorders: No Family Medical History Any Significant Family History?: Yes Hx Alcohol Use: Mother, Brother/Sister Hx Anxiety: Mother, Brother/Sister, Grandparents Hx Cancer: Grandparents Hx Dementia: Grandparents Hx Depression: Mother, Brother/Sister Hx Diabetes: Mother, Brother/Sister Hx Heart Disease: Mother Hx HTN: Father, Mother, Brother/Sister, Grandparents Hx Resp Disorders: Mother Hx Stroke: Grandparents H&P Meds/Allergies - Allergies Allergies: Allergies Allergy/AdvReac Type Severity Reaction Status Date / Time bee pollen Allergy HIVES Verified 07/12/16 07:11 egg Allergy HIVES Verified 07/12/16 07:11 metformin AdvReac Intermediate HEADACHE Verified 07/12/16 07:09 tiotropium bromide AdvReac Mild nose bleeds Verified 07/12/16 07:09 [From Spiriva with HandiHaler] - Home Medications Home Medications Medication Instructions Recorded Confirmed Last Taken Nitroglycerin [Nitrostat] 0.4 mg SL ASDIR 09/03/14 07/12/16 Unknown Epinephrine [Epipen] 0.3 mg IM ASDIR PRN 05/05/15 07/12/16 Unknown Previous Rx's Medication Instructions Recorded Albuterol Sulfate [Ventolin Hfa] 1 - 2 puff IH .EVERY 4-6 HRS PRN 05/05/15 #1 inhaler Inhaler, Assist Devices [Space 1 each ASDIR #1 spacer 05/05/15 Chamber Plus] Budesonide/Formoterol Fumarate 2 puff IH BID #1 puff 07/11/16 [Symbicort 160-4.5 Mcg Inhaler] - Active Medications Active Medications: Current Medications Amitriptyline HCl (Elavil) 100 mg PO QHS [facility] Last Admin: 07/12/16 22:57 Dose: 100 mg Hydralazine HCl (Apresoline) 20 mg IV Q6H PRN PRN Reason: Hypertensive Emergency Hydrochlorothiazide (Hctz 25mg) 25 mg PO DAILY [facility] Sodium Chloride () 1,000 mls @ 125 mls/hr IV .Q8H PRN PRN Reason: LARGE VOLUME IV Last Admin: 07/13/16 05:23 Dose: 125 mls/hr Insulin Aspart (Novolog Flexpen) 1 unit SQ TIDINS [facility] PRN Reason: Protocol Losartan Potassium (Cozaar) 25 mg PO DAILY [facility] Meclizine HCl (Antivert) 25 mg PO Q6H [facility] Last Admin: 07/13/16 06:13 Dose: 25 mg Metoclopramide HCl (Reglan) 10 mg IVP Q6H PRN PRN Reason: NAUSEA Last Admin: 07/13/16 03:00 Dose: 10 mg Morphine Sulfate (Morphine Sulfate) 2.5 mg IVP Q4HR PRN PRN Reason: Pain - General Stop: 07/19/16 12:15 Pantoprazole Sodium (Protonix Iv) 40 mg IV DAILY [facility] Patient Own Med: (Cilostazol 50 Mg) 1 each PO BID [facility] Last Admin: 07/12/16 22:57 Dose: 1 each Pregabalin (Lyrica) 100 mg PO TID [facility] Last Admin: 07/12/16 22:57 Dose: 100 mg Promethazine HCl (Phenergan Iv) 12.5 mg IVP Q4H PRN PRN Reason: NAUSEA Last Admin: 07/12/16 23:43 Dose: 12.5 mg Sucralfate (Carafate) 1 g PO TID [facility] Last Admin: 07/12/16 22:56 Dose: 1 g Physical Exam - Vital Signs Vital Signs: Vital Signs - Last 24 Hrs Temp Pulse Pulse Pulse Resp BP BP 07/13/16 06:00 98.7 F 112 H 18 136/73 07/12/16 23:45 98.5 F 104 H 20 141/90 07/12/16 21:00 20 07/12/16 20:32 98.5 F 112 H 20 148/102 07/12/16 18:15 98.8 F 162/91 07/12/16 18:14 98.0 F 108 H 16 138/85 07/12/16 14:14 98.8 F 116 H 18 162/91 07/12/16 14:10 110 H 110 H 16 07/12/16 12:15 97.7 F 123 H 20 145/88 07/12/16 11:45 114 H 148/87 Pulse Ox 07/13/16 06:00 91 L 07/12/16 23:45 07/12/16 21:00 07/12/16 20:32 93 L 07/12/16 18:15 07/12/16 18:14 93 L 07/12/16 14:14 98 07/12/16 14:10 07/12/16 12:15 94 L 07/12/16 11:45 - General General Appearance: Alert, Oriented x3, Cooperative, Mild distress Limitations: No limitations - Head Head exam: Normal inspection - Eye Eye exam: Normal appearance, PERRL. negative: Conjunctival injection - ENT ENT exam: Normal exam, Mucous membranes moist Ear exam: Normal external inspection Nasal Exam: Normal inspection Mouth exam: Normal external inspection Teeth exam: Normal inspection Throat exam: Normal inspection - Neck Neck exam: Normal inspection, Full ROM. negative: Tenderness - Respiratory Respiratory exam: Normal lung sounds bilaterally. negative: Respiratory distress - Cardiovascular Cardiovascular Exam: Regular rate, Normal rhythm, Normal heart sounds - GI/Abdominal GI/Abdominal exam: Soft, Tenderness (epigastric area tender but very soft) - Rectal Rectal exam: Deferred - exam: Deferred - Extremities Extremities exam: Normal inspection, Full ROM, Normal capillary refill. negative: Tenderness - Back Back exam: Reports: Normal inspection, Full ROM. Denies: Muscle spasm, Rash noted, Tenderness - Neurological Neurological exam: Alert, Normal gait, Oriented X3 - Psychiatric Psychiatric exam: Normal affect, Normal mood - Skin Skin exam: Dry, Intact, Normal color, Warm Results - Labs Result Diagrams: 07/13/16 05:55 07/13/16 05:55 Labs Last 24 Hours: Laboratory Results - last 24 hr 07/12/16 07/12/16 07/12/16 16:47 17:00 21:38 WBC RBC Hgb Hct MCV MCH MCHC RDW Plt Count MPV Gran % Lymphocytes % Monocytes % Eosinophils % Basophils % Sodium Potassium Chloride Carbon Dioxide Anion Gap BUN Creatinine Estimated GFR POC Glucose 177 H Cancelled 160 H Random Glucose Calcium Total Bilirubin AST ALT Alkaline Phosphatase Total Protein Albumin Globulin Albumin/Globulin Ratio Lipase 07/12/16 07/13/16 07/13/16 22:00 05:55 05:55 WBC 9.4 RBC 5.52 Hgb 15.7 Hct 45.6 MCV 82.6 MCH 28.4 MCHC 34.4 RDW 14.1 Plt Count 186 MPV 11.6 H Gran % 69.5 Lymphocytes % 21.2 Monocytes % 7.5 Eosinophils % 1.6 Basophils % 0.2 Sodium 136 Potassium 3.7 Chloride 104 Carbon Dioxide 22.7 Anion Gap 9.3 BUN 10 Creatinine 0.7 Estimated GFR > 60 POC Glucose Cancelled Random Glucose 182 H Calcium 8.3 L Total Bilirubin 0.70 AST 19 ALT 32 Alkaline Phosphatase 91 Total Protein 6.3 Albumin 3.7 Globulin 2.6 Albumin/Globulin Ratio 1.4 Lipase 07/13/16 07/13/16 05:55 07:30 WBC RBC Hgb Hct MCV MCH MCHC RDW Plt Count MPV Gran % Lymphocytes % Monocytes % Eosinophils % Basophils % Sodium Potassium Chloride Carbon Dioxide Anion Gap BUN Creatinine Estimated GFR POC Glucose Cancelled Random Glucose Calcium Total Bilirubin AST ALT Alkaline Phosphatase Total Protein Albumin Globulin Albumin/Globulin Ratio Lipase 26 VTE H&P Assessment - Risk for VTE Risk for VTE: Yes Risk Level: Moderate Risk Assessment Date: 07/15/16 Risk Assessment Time: 09:10 VTE Orders Placed or Will Be Placed: No VTE Reason for No Prophylaxis: Treatment Not Tolerated (high bleed risk at this time) AMI H&P Plan - EKG Initial Date: 07/12/16 Time: 08:42 EKG: Unchanged From Previous (09/03/14) EKG Detail: Rate98, Int [id number], Sinus, Russell R, RBBB, ST NS changes Plan - Inpatient Certification Inpatient Certification: Admit to inpatient care: Based on my medical assessment, after consideration of patient's risk factors (age, co-morbidities and patient presenting symptoms and acuity), I expect that this patient will remain in the hospital greater than or equal to two midnights and that the services needed warrant inpatient care because: Patient Risk Factors: [] Estimated length of stay: [] The patient may reasonably be expected to be discharged or transferred to a hospital within 96 hours after admission to [facility]. Services needed: [] Post hospital care (if known): [] I certify that my determination is in accordance with my understanding of Medicare requirements for reasonable and necessary inpatient services. - Detailed Diagnosis and Plan (1) Nausea and vomiting Current Visit: Yes Status: Acute Base Code: R11.2 - NAUSEA WITH VOMITING , UNSPECIFIED Comment: 07/13/16: - anti emetic therapy prn - improve glucose control - begin monitoring glucose level at home - consult gi on - concern for gastritis or withdrawl from heavy democrat with substances on 07/09 ( birthday) at which time benzos and opioids found in system (2) Hypertensive urgency Current Visit: Yes Status: Acute Base Code: I16.0 - HYPERTENSIVE URGENCY Comment: 07/13/15- labetalol 5mg IV - ACS rule out with 3 sets of enzymes, EKG - CTA to rule out PE (3) Diabetes mellitus, insulin dependent (IDDM), uncontrolled Current Visit: No Status: Chronic Base Code: E10.65 - TYPE 1 DIABETES MELLITUS WITH HYPERGLYCEMIA Comment: 07/13/16: - continue home lantus dose - glucose 188 in the am - accuck qachs - keep NPO today (4) GERD (gastroesophageal reflux disease) Current Visit: No Status: Acute Base Code: K21.9 - GASTRO-ESOPHAGEAL REFLUX DISEASE WITHOUT ESOPHAGITIS Comment: 07/13/15 - history of gastritis in Aug 2014 - may benefit from getting scope as outpatient since has history of precancerous lesion removed from esophagus and to check for gastric lesions
[2016-07-13] MEDS ORDERED: UMECLIDINIUM BROMIDE 62.5 MCG IH SCH (10:00)
[2016-07-13] MEDS: SUCRALFATE 1 G/10 ML UD PO SCH ×3 (10:21→22:38)
[2016-07-13] MEDS: NICOTINE 21 MG/24 HOUR PATCH TD SCH (10:21)
[2016-07-13] MEDS: PANTOPRAZOLE SODIUM IV 40 MG VIAL IV SCH (10:21)
[2016-07-13] MEDS: LOSARTAN POTASSIUM 25 MG TABLET PO SCH (10:21)
[2016-07-13] MEDS: HYDROCHLOROTHIAZIDE 25 MG TABLET PO SCH (10:21)
[2016-07-13] MEDS ORDERED: DICYCLOMINE HCL 10 MG CAPSULE PO SCH (10:30)
[2016-07-13] MEDS: PREGABALIN 50 MG CAPSULE PO SCH ×3 (10:32→22:39)
[2016-07-13] MEDS: CILOSTAZOL 50 MG PO SCH ×2 (10:32→22:39)
[2016-07-13] MEDS: NOVOLOG FLEXPEN (INSULIN ASPART) 100 UNITS/ML SQ SCH ×2 (13:36→17:06)
[2016-07-13] MEDS: LABETALOL HCL 5MG/ML, 20ML VIAL IV ONE ×2 (13:38→14:41)
[2016-07-13 15:20] LABS: CKMB 1.5 ug/L (0-6); TROPONIN I 0.013 ng/mL (0.00-0.034)
[2016-07-13] MEDS ORDERED: ACETAMINOPHEN 500 MG TABLET PO PRN (16:48)
[2016-07-13] MEDS: DICYCLOMINE HCL 10 MG CAPSULE PO SCH (16:52)
[2016-07-13 22:16] LABS: CKMB 1.1 ug/L (0-6); TROPONIN I < 0.012 ng/mL (0.00-0.034)
[2016-07-13] MEDS: AMITRIPTYLINE 25 MG TABLET PO SCH (22:38)
[2016-07-14] MEDS: DICYCLOMINE HCL 10 MG CAPSULE PO SCH ×3 (01:04→15:33)
[2016-07-14] MEDS: MECLIZINE 25 MG TABLET PO SCH ×3 (06:00→18:46)
[2016-07-14] MEDS: 0.9 % SODIUM CHLORIDE 1000ML 1,000 ML IV PRN ×2 (06:01→15:35)
[2016-07-14 06:03] LABS: CKMB 1.2 ug/L (0-6); TROPONIN I 0.015 ng/mL (0.00-0.034)
--- NOTE | 2016-07-14 07:20 | CT ANGIOGRAM REPORT ---
EXAM: CT ANGIOGRAM OF THE CHEST WITH POST PROCESSING HISTORY: CHEST PAIN AND EPIGASTRIC PAIN RADIATING INTO THE CHEST FOR THE PAST WEEK. WORSENING SYMPTOMS TODAY. TECHNIQUE: Standard CT angiography of the chest was performed with post processing following the bolus administration of 100 ml of Omnipaque 350. Additional coronal and sagittal maximum intensity projection reformatted images were performed on an independent workstation under concurrent supervision. Comparison: Previous abdominal CT scan dated 07/12/16. FINDINGS: The pulmonary arterial tree is normal. There is no pulmonary embolus. There are moderate coronary artery calcifications. The heart is upper normal in size. A small pericardial effusion is present. There are atherosclerotic calcifications within the aorta with no aneurysm or dissection. There are moderate centrilobular emphysematous changes within both lungs. Dependent atelectasis is present at both lung bases. There is small hiatal hernia. There is nonspecific wall thickening of the mid to proximal esophagus. No significant surrounding inflammatory changes are identified. There is no extraluminal air. A follow-up EGD is recommended for further characterization. There is mild chronic bilateral perinephric fat stranding which appears similar to the prior study. The upper abdomen is otherwise unremarkable. IMPRESSION: 1. NO EVIDENCE FOR PULMONARY EMBOLUS OR AORTIC DISSECTION. 2. MODERATE CORONARY ARTERY CALCIFICATIONS. 3. SMALL PERICARDIAL EFFUSION. 4. NONSPECIFIC WALL THICKENING OF THE PROXIMAL ESOPHAGUS. A FOLLOW-UP EGD IS RECOMMENDED FOR FURTHER CHARACTERIZATION. 5. SMALL HIATAL HERNIA. 6. MODERATE CENTRILOBULAR EMPHYSEMATOUS CHANGES. 7. DEPENDENT ATELECTASIS AT BOTH LUNG BASES. JOB NUMBER: [id number] [facility]
[2016-07-14] MEDS: NOVOLOG FLEXPEN (INSULIN ASPART) 100 UNITS/ML SQ SCH ×3 (07:29→17:14)
[2016-07-14] MEDS: PREGABALIN 50 MG CAPSULE PO SCH ×3 (10:04→22:02)
[2016-07-14] MEDS: SUCRALFATE 1 G/10 ML UD PO SCH ×3 (10:05→22:01)
[2016-07-14] MEDS: HYDROCHLOROTHIAZIDE 25 MG TABLET PO SCH (10:05)
[2016-07-14] MEDS: CILOSTAZOL 50 MG PO SCH ×2 (10:05→22:02)
[2016-07-14] MEDS: NICOTINE 21 MG/24 HOUR PATCH TD SCH (10:05)
[2016-07-14] MEDS: PANTOPRAZOLE SODIUM IV 40 MG VIAL IV SCH (10:06)
[2016-07-14] MEDS: LOSARTAN POTASSIUM 25 MG TABLET PO SCH (10:09)
[2016-07-14] MEDS: AMITRIPTYLINE 25 MG TABLET PO SCH (22:02)
[2016-07-15] MEDS: MECLIZINE 25 MG TABLET PO SCH ×3 (00:24→13:16)
[2016-07-15] MEDS: DICYCLOMINE HCL 10 MG CAPSULE PO SCH ×2 (00:25→08:16)
[2016-07-15] MEDS: 0.9 % SODIUM CHLORIDE 1000ML 1,000 ML IV PRN ×3 (00:25→09:41)
[2016-07-15] MEDS: NOVOLOG FLEXPEN (INSULIN ASPART) 100 UNITS/ML SQ SCH ×2 (08:17→15:12)
--- NOTE | 2016-07-15 09:14 | Physician Progress Note ---
Subjective - Date Date of Physician Progress Note: 07/14/16 - Subjective Subjective Comment: Patient feeling much better, feeling hungry and asking to advance diet this morning. Objective - Vital Signs Vital Signs: Vital Signs - Last 24 Hrs Temp Pulse Pulse Resp BP Pulse Ox 07/15/16 09:03 97.9 F 116 H 16 149/86 95 07/15/16 05:42 97.6 F 108 H 16 131/93 91 L 07/15/16 02:00 97.7 F 104 H 18 134/90 95 07/14/16 22:00 97.6 F 117 H 18 138/96 96 07/14/16 20:00 97 H 104 H 18 07/14/16 18:00 97.8 F 115 H 16 131/87 95 07/14/16 14:00 98.4 F 117 H 16 104/99 95 07/14/16 10:00 97.9 F 104 H 18 152/91 94 L - General General Appearance: Alert, Oriented x3, Cooperative, No acute distress Limitations: No limitations - Head Head exam: Normal inspection - Eye Eye exam: Normal appearance, PERRL. negative: Conjunctival injection - ENT ENT exam: Normal exam, Mucous membranes moist Ear exam: Normal external inspection Nasal Exam: Normal inspection Mouth exam: Normal external inspection Teeth exam: Normal inspection Throat exam: Normal inspection - Neck Neck exam: Normal inspection, Full ROM. negative: Tenderness - Respiratory Respiratory exam: Normal lung sounds bilaterally. negative: Respiratory distress - Cardiovascular Cardiovascular Exam: Regular rate, Normal rhythm, Normal heart sounds - GI/Abdominal GI/Abdominal exam: Soft - Rectal Rectal exam: Deferred - exam: Deferred - Extremities Extremities exam: Normal inspection, Full ROM, Normal capillary refill. negative: Tenderness - Back Back exam: Reports: Normal inspection, Full ROM. Denies: Muscle spasm, Rash noted, Tenderness - Neurological Neurological exam: Alert, Normal gait, Oriented X3 - Psychiatric Psychiatric exam: Normal affect, Normal mood - Skin Skin exam: Dry, Intact, Normal color, Warm Assessment and Plan - Assessment and Plan (1) Nausea and vomiting Current Visit: Yes Status: Acute Base Code: R11.2 - NAUSEA WITH VOMITING , UNSPECIFIED Comment: 07/14/16: - anti emetic therapy prn - advance diet to clears and further if tolerates - consult gi for possible scope as outpatient - concern for gastritis or withdrawl from heavy democrat with substances on 07/09 ( birthday) at which time benzos and opioids found in system (2) Hypertensive urgency Current Visit: Yes Status: Acute Base Code: I16.0 - HYPERTENSIVE URGENCY Comment: 07/14/15- improved and resolved - ACS ruled out with 3 sets of enzymes, EKG - PE ruled out with CTA - will keep monitoring BP (3) Diabetes mellitus, insulin dependent (IDDM), uncontrolled Current Visit: No Status: Chronic Base Code: E10.65 - TYPE 1 DIABETES MELLITUS WITH HYPERGLYCEMIA Comment: 07/14/16: - continue home lantus dose - glucose in better control - accuck qachs - advance to clears (4) GERD (gastroesophageal reflux disease) Current Visit: No Status: Acute Base Code: K21.9 - GASTRO-ESOPHAGEAL REFLUX DISEASE WITHOUT ESOPHAGITIS Comment: 07/14/15 - history of gastritis in Aug 2014 - may benefit from getting scope as outpatient since has history of precancerous lesion removed from esophagus and to check for gastric lesions Results - Labs Result Diagrams: 07/13/16 05:55 07/13/16 05:55 Labs Last 24 Hours: Laboratory Results - last 24 hr 07/14/16 07/14/16 07/14/16 11:44 16:55 21:12 POC Glucose 140 H 162 H 169 H DVT/PE Assessment - Risk for VTE Risk for VTE: No Risk Level: Moderate Risk Assessment Date: 07/15/16 Risk Assessment Time: 09:10 VTE Orders Placed or Will Be Placed: No VTE Reason for No Prophylaxis: Treatment Not Tolerated (high bleed risk at this time) - Active Medicaitons Current Medications: Current Medications Acetaminophen (Tylenol 500mg Tab) 1,000 mg PO Q6H PRN PRN Reason: Pain - General Last Admin: 07/13/16 16:51 Dose: 1,000 mg Amitriptyline HCl (Elavil) 100 mg PO QHS [facility] Last Admin: 07/14/16 22:02 Dose: 100 mg Dicyclomine HCl (Bentyl) 10 mg PO Q8H [facility] Last Admin: 07/15/16 08:16 Dose: Not Given Hydralazine HCl (Apresoline) 20 mg IV Q6H PRN PRN Reason: Hypertensive Emergency Hydrochlorothiazide (Hctz 25mg) 25 mg PO DAILY [facility] Last Admin: 07/14/16 10:05 Dose: 25 mg Sodium Chloride () 1,000 mls @ 125 mls/hr IV .Q8H PRN PRN Reason: LARGE VOLUME IV Last Admin: 07/15/16 00:26 Dose: 125 mls/hr Insulin Aspart (Novolog Flexpen) 1 unit SQ TIDINS [facility] PRN Reason: Protocol Last Admin: 07/15/16 08:17 Dose: Not Given Losartan Potassium (Cozaar) 25 mg PO DAILY [facility] Last Admin: 07/14/16 10:09 Dose: 25 mg Meclizine HCl (Antivert) 25 mg PO Q6H [facility] Last Admin: 07/15/16 05:19 Dose: Not Given Metoclopramide HCl (Reglan) 10 mg IVP Q6H PRN PRN Reason: NAUSEA Last Admin: 07/13/16 22:39 Dose: 10 mg Morphine Sulfate (Morphine Sulfate) 2.5 mg IVP Q4HR PRN PRN Reason: Pain - General Stop: 07/19/16 12:15 Last Admin: 07/15/16 01:35 Dose: 2.5 mg Nicotine (Nicotine 21mg) 1 patch TD DAILY [facility] Last Admin: 07/14/16 10:05 Dose: 1 patch Pantoprazole Sodium (Protonix Iv) 40 mg IV DAILY [facility] Last Admin: 07/14/16 10:06 Dose: 40 mg Patient Own Med: (Cilostazol 50 Mg) 1 each PO BID [facility] Last Admin: 07/14/16 22:02 Dose: 1 each Pregabalin (Lyrica) 100 mg PO TID [facility] Last Admin: 07/14/16 22:02 Dose: 100 mg Promethazine HCl (Phenergan Iv) 12.5 mg IVP Q4H PRN PRN Reason: NAUSEA Last Admin: 07/13/16 20:03 Dose: 12.5 mg Sucralfate (Carafate) 1 g PO TID [facility] Last Admin: 07/14/16 22:01 Dose: 1 g AMI Plan - Labs Result Diagrams: 07/13/16 05:55 07/13/16 05:55
[2016-07-15] MEDS: PREGABALIN 50 MG CAPSULE PO SCH (09:38)
[2016-07-15] MEDS: PANTOPRAZOLE SODIUM IV 40 MG VIAL IV SCH (09:49)
--- NOTE | 2016-07-15 12:43 | Discharge Summary ---
Providers Discharge Summary Date: 07/15/16 Date of admission: 07/12/16 11:38 Expected Date of Discharge: 07/15/16 Attending physician: DERECK GALLEGOS Consults: Consult Orders 07/14/16 12:01 Consult NOW Consulting Provider: AMILCAR WHEELER Physician Instructions: Reason For Exam: nausea Physical Exam - Vital Signs Vital Signs: Vital Signs - Last 24 Hrs Temp Pulse Pulse Resp BP Pulse Ox 07/15/16 09:03 97.9 F 116 H 16 149/86 95 07/15/16 05:42 97.6 F 108 H 16 131/93 91 L 07/15/16 02:00 97.7 F 104 H 18 134/90 95 07/14/16 22:00 97.6 F 117 H 18 138/96 96 07/14/16 20:00 97 H 104 H 18 07/14/16 18:00 97.8 F 115 H 16 131/87 95 07/14/16 14:00 98.4 F 117 H 16 104/99 95 - General General Appearance: Alert, Oriented x3, Cooperative, No acute distress Limitations: No limitations - Head Head exam: Normal inspection - Eye Eye exam: Normal appearance, PERRL. negative: Conjunctival injection - ENT ENT exam: Normal exam, Mucous membranes moist Ear exam: Normal external inspection Nasal Exam: Normal inspection Mouth exam: Normal external inspection Teeth exam: Normal inspection Throat exam: Normal inspection - Neck Neck exam: Normal inspection, Full ROM. negative: Tenderness - Respiratory Respiratory exam: Normal lung sounds bilaterally. negative: Respiratory distress - Cardiovascular Cardiovascular Exam: Regular rate, Normal rhythm, Normal heart sounds - GI/Abdominal GI/Abdominal exam: Soft - Rectal Rectal exam: Deferred - exam: Deferred - Extremities Extremities exam: Normal inspection, Full ROM, Normal capillary refill. negative: Tenderness - Back Back exam: Reports: Normal inspection, Full ROM. Denies: Muscle spasm, Rash noted, Tenderness - Neurological Neurological exam: Alert, Normal gait, Oriented X3 - Psychiatric Psychiatric exam: Normal affect, Normal mood - Skin Skin exam: Dry, Intact, Normal color, Warm Hospitalization - Hospitalization Admission Diagnosis: Intractable vomiting, hypertension - Problem List/Discharge Diagnosis (1) Nausea and vomiting Current Visit: Yes Status: Acute Base Code: R11.2 - NAUSEA WITH VOMITING , UNSPECIFIED Comment: 07/15/16: diagnosis of esophageal ulcers and gastritis- will treat with PPI, carafate and repeat scope in 8 weeks - anti emetic therapy prn - advance diet - differential includes withdrawl from substances on [birth year] (birthday) at which time benzos and opioids found in system. also heavy THC user can cause cyclic N/ V (2) Hypertensive urgency Current Visit: Yes Status: Acute Base Code: I16.0 - HYPERTENSIVE URGENCY Comment: 07/15/15- improved and resolved - ACS ruled out with 3 sets of enzymes, EKG - PE ruled out with CTA - will keep monitoring BP (3) Diabetes mellitus, insulin dependent (IDDM), uncontrolled Current Visit: No Status: Chronic Base Code: E10.65 - TYPE 1 DIABETES MELLITUS WITH HYPERGLYCEMIA Comment: 07/14/16: - continue home lantus dose - glucose in better control - accuck qachs - advance to clears (4) GERD (gastroesophageal reflux disease) Current Visit: No Status: Acute Base Code: K21.9 - GASTRO-ESOPHAGEAL REFLUX DISEASE WITHOUT ESOPHAGITIS Comment: 07/14/15 - history of gastritis in Aug 2014 - may benefit from getting scope as outpatient since has history of precancerous lesion removed from esophagus and to check for gastric lesions (5) Esophageal ulcer Current Visit: Yes Status: Acute Base Code: K22.10 - ULCER OF ESOPHAGUS WITHOUT BLEEDING (6) Gastritis Current Visit: Yes Status: Acute Base Code: K29.70 - GASTRITIS, UNSPECIFIED, WITHOUT BLEEDING (7) Esophagitis Current Visit: Yes Status: Acute Base Code: K20.9 - ESOPHAGITIS, UNSPECIFIED - Hospitalization Course Disposition: Home, Self-Care Procedures: Imaging and X-Rays 07/13/16 13:29 CHEST CTA w contrast [CTA] Stat Cardiology Procedures 07/13/16 14:56 EKG ONCE Abnormal Labs: Abnormal Lab Results 07/12/16 07/12/16 07/13/16 Range/Units 16:47 21:38 05:55 MPV 11.6 H (7.4-10.4) fl D-Dimer (0-0.59) mg/L FEU POC Glucose 177 H 160 H (70-110) mg/dL Random Glucose (70-110) mg/dL Calcium (8.5-10.1) mg/dL 07/13/16 07/13/16 07/13/16 Range/Units 05:55 13:00 13:35 MPV (7.4-10.4) fl D-Dimer 0.84 H (0-0.59) mg/L FEU POC Glucose 168 H (70-110) mg/dL Random Glucose 182 H (70-110) mg/dL Calcium 8.3 L (8.5-10.1) mg/dL 07/13/16 07/13/16 07/14/16 Range/Units 17:04 22:00 06:59 MPV (7.4-10.4) fl D-Dimer (0-0.59) mg/L FEU POC Glucose 156 H 120 H 120 H (70-110) mg/dL Random Glucose (70-110) mg/dL Calcium (8.5-10.1) mg/dL 07/14/16 07/14/16 07/14/16 Range/Units 11:44 16:55 21:12 MPV (7.4-10.4) fl D-Dimer (0-0.59) mg/L FEU POC Glucose 140 H 162 H 169 H (70-110) mg/dL Random Glucose (70-110) mg/dL Calcium (8.5-10.1) mg/dL 07/15/16 Range/Units 09:16 MPV (7.4-10.4) fl D-Dimer (0-0.59) mg/L FEU POC Glucose (70-110) mg/dL Random Glucose 142 H (70-110) mg/dL Calcium (8.5-10.1) mg/dL Condition at Discharge: (2) Stable Discharge Diagnosis: 1) esophageal ulcer 2) gastritis 3) esophagitis Discharge Medications - Discharge Medications Prescriptions: Sucralfate [Carafate] 2 gm PO BID #80 tab Nicotine [Nicotine 21Mg] 1 patch TD DAILY #30 patch Pantoprazole Sodium [Protonix] 40 mg PO BID #60 tab.dr Home Medications: Ambulatory Orders Nitroglycerin [Nitrostat] 0.4 mg SL ASDIR 09/03/14 [Last Taken Unknown] Albuterol Sulfate [Ventolin Hfa] 1 - 2 puff IH .EVERY 4-6 HRS PRN #1 inhaler [Last Taken Unknown] Epinephrine [Epipen] 0.3 mg IM ASDIR PRN 05/05/15 [Last Taken Unknown] Inhaler, Assist Devices [Space Chamber Plus] 1 each ASDIR #1 spacer 05/05/15 [Last Taken Unknown] Budesonide/Formoterol Fumarate [Symbicort 160-4.5 Mcg Inhaler] 2 puff IH BID #1 puff 07/11/16 [Last Taken Unknown] Nicotine [Nicotine 21Mg] 1 patch TD DAILY #30 patch 07/15/16 [Last Taken Unknown ] Pantoprazole Sodium [Protonix] 40 mg PO BID #60 tab.dr 07/15/16 [Last Taken Unknown] Pregabalin [Lyrica] 100 mg PO TID capsule 07/15/16 [Last Taken Unknown] Sucralfate [Carafate] 2 gm PO BID #80 tab 07/15/16 [Last Taken Unknown] Discharge Plan - Discharge Instructions Activity at Discharge: Increase Activity as Tolerated Diet at Discharge: Advance to Usual Diet Instructions: Gastritis (DC), Diet for Ulcers and Gastritis (GEN), Peptic Ulcer (DC)
[2016-07-15] MEDS: NICOTINE 21 MG/24 HOUR PATCH TD SCH (13:13)
[2016-07-15] MEDS: SUCRALFATE 1 G/10 ML UD PO SCH (13:14)
[2016-07-15] MEDS: HYDROCHLOROTHIAZIDE 25 MG TABLET PO SCH (13:15)
[2016-07-15] MEDS: LOSARTAN POTASSIUM 25 MG TABLET PO SCH (13:15)
[2016-07-15] MEDS: CILOSTAZOL 50 MG PO SCH (13:16)
[2016-07-15] MEDS ORDERED: MIDAZOLAM HCL 2MG/2ML VIAL IV ONE ×2 (14:29)
[2016-07-15] MEDS ORDERED: LIDOCAINE 2% MDV (20MG/ML) 20ML VIAL IV ONE ×2 (14:29)
[2016-07-15] MEDS ORDERED: PROPOFOL 10 MG/ML VIAL IV ONE (14:29)
[2016-07-15] MEDS ORDERED: FENTANYL PF 100MCG/2ML VIAL IV ONE ×2 (14:29)
--- NOTE | 2016-07-16 08:20 | Medical Records Consult ---
DATE OF CONSULTATION: 07/15/2016. CHIEF COMPLAINT: Nausea and vomiting. HISTORY OF PRESENT ILLNESS: The patient is a 51-year-old gentleman with multiple medical problems who presented with chronic bouts of nausea and vomiting. He states that this seems to occur at the same time he is experiencing vertigo. This typically occurs in the middle of the night. He cannot identify whether the vertigo itself triggers his nausea and vomiting, as they seem to all occur together. He also complains of early satiety at times. He denies melena, hematochezia, constipation, or diarrhea. He has been experiencing difficulty with his glycemic control. He states he had a hemoglobin A1c drawn 1-2 weeks ago, the results of which are unknown to him at this time. He does use marijuana frequently. It is unclear whether he has any improvement of his nausea and vomiting with warm showers. PAST MEDICAL HISTORY: Polysubstance abuse, hypertension, vertigo, insulin-dependent diabetes mellitus, chronic pancreatitis, peripheral neuropathy, COPD, and smoker. PAST SURGICAL HISTORY: Cholecystectomy and colon resection for diverticulitis. ALLERGIES: BEE POLLEN, EGG, METFORMIN, SPIRIVA. HOME MEDICATIONS: 1. Nitrostat. 2. EpiPen as needed. 3. Albuterol. 4. Budesonide inhaler. 5. Amitriptyline. 6. Hydralazine. 7. Hydrochlorothiazide. 8. NovoLog. 9. Losartan. 10. Reglan. 11. Lyrica. FAMILY HISTORY: Per the HPI and noncontributory other than there has been anxiety and alcohol abuse in the family, hypertension, heart disease, and respiratory disorders and stroke. SOCIAL HISTORY: He has a history of alcohol abuse. He also has polysubstance abuse. He has multiple tattoos. He has not traveled outside the [place]. REVIEW OF SYSTEMS: Again, noted per the HPI. PHYSICAL EXAMINATION: VITALS: 200/102, respirations 18, pulse 109, temperature 98.1. GENERAL: He is awake, alert, oriented x3, nontoxic in appearance. He appears to be in no acute distress. He appears much older than his stated age. He is edentulous. He is otherwise alert and oriented x3. Nontoxic. HEENT: Head is atraumatic, normocephalic. No temporal muscle wasting noted. Skin is warm and dry. No jaundice noted. Extraocular muscles are intact. No conjunctival injection or scleral icterus noted. Again, he is edentulous. NECK: Supple. Trachea is midline. Thyroid nonpalpable. HEART: Slightly tachycardic, otherwise regular rate and rhythm. LUNGS: Somewhat diminished breath sounds, otherwise clear to auscultation without wheezes, rales, or rhonchi. Normal percussion. ABDOMEN: Soft. Positive bowel sounds. No guarding, rebound, rigidity, tenderness, or palpable hepatosplenomegaly. EXTREMITIES: No clubbing, cyanosis, or edema. LABORATORY DATA: White count 9.4, hemoglobin 15.7, hematocrit 45.6, platelets 186. Liver chemistries were unremarkable. Glucose random was 182. Lipase was 26. CT demonstrates diverticulosis without diverticulitis, history of prior cholecystectomy, no other acute process noted. IMPRESSION: 1. Nausea and vomiting which is likely multifactorial, suspect a combination of polysubstance abuse, particularly the use of marijuana which can cause cyclical rebound nausea and vomiting. Also, there may be a reflux component and likely a gastroparesis component. 2. Diabetes mellitus type 1. 3. Chronic obstructive pulmonary disease. 4. Smoker. 5. Polysubstance abuse. 6. Hypertension. RECOMMENDATION: I suggest the patient refrain from the use of marijuana and should also use a twice per day PPI, undergo an upper endoscopy, and perhaps even a gastric emptying study. We will proceed with upper endoscopy with further recommendations to follow. DO RYAN Ortiz
--- NOTE | 2016-07-16 11:49 | Operative Note ---
DATE OF SURGERY: OPERATION: ESOPHAGOGASTRODUODENOSCOPY with biopsy. PREOPERATIVE DIAGNOSIS: Nausea and vomiting. POSTOPERATIVE DIAGNOSES: 1. Gastritis. 2. Ulcerative esophagitis. PROCEDURE: After informed consent was obtained from the patient, he was placed in the left lateral decubitus position in the endoscopy suite, sedated and monitored by the department of anesthesia. Once sedated, a well-lubricated [id number] gastroscope was placed in the posterior oropharynx and under direct visualization passed to the proximal esophagus. The endoscope was advanced through the proximal, mid, and distal esophagus. The distal esophagus demonstrated ulcerative changes LA grade C/D. The remainder of the esophagus otherwise was normal. The gastric body demonstrated diffuse erythematous changes, particularly in the body and antrum. The pylorus, duodenal bulb and sweep were unremarkable. J-turn views of the proximal stomach were unrevealing. The endoscope was straightened and multiple antral biopsies were obtained for histology. The endoscope was retracted through the course of the proximal stomach and esophagus. No new findings or abnormalities identified. IMPRESSION: 1. Ulcerative esophagitis, LA grade C/D. 2. Gastritis. RECOMMENDATIONS: I would suggest the patient attempt better glycemic control. He should minimize his use of marijuana if not completely eliminate, as this may be triggering some of his nausea and vomiting. If his symptoms persist, a gastric emptying study would be felt to be reasonable, as his symptoms may be related to diabetic gastroparesis as well as other multifactorial issues. I would also recommend a twice per day PPI and a repeat upper endoscopy in 8 weeks. As always, thank you for allowing me to participate in the healthcare of your patients. Cameron Romo DO CC: GERDA Platt Dr.
== END 2016-07-15 14:30 | disposition home or self-care (01) | DRG 382 ==
LOC: ER 06:59 → MEDSURG 11:38
PROVIDERS: ADMIT Family Medicine; ATTEND Family Medicine
PROC: 0DB48ZX Excision of Esophagogastric Junction, Via Natural or Artificial Opening Endoscopic, Diagnostic (ICD-10-PCS; principal; 2016-07-12)
DX: K22.10 Ulcer of esophagus without bleeding (principal); R11.10 Vomiting, unspecified; I10 Essential (primary) hypertension; J44.9 Chronic obstructive pulmonary disease, unspecified; E11.65 Type 2 diabetes mellitus with hyperglycemia; Z79.4 Long term (current) use of insulin; G62.9 Polyneuropathy, unspecified; K29.50 Unspecified chronic gastritis without bleeding; F12.10 Cannabis abuse, uncomplicated; Z72.89 Other problems related to lifestyle; F17.210 Nicotine dependence, cigarettes, uncomplicated
CPT/HCPCS: 36416; 71275; 74177; 80048; 80053; 80076; 81001; 82553; 82947; 82948; 83690; 83735; 84484; 85025; 85379; 93005; 93010; 93041; 94760; 96374; 96375; 96376; 99223; 99285; C9113; J1200; J2405; J2550; J2765; J7030

== ENCOUNTER 2017-09-29 08:56 | Day surgery (SDC) | payer MEDICAID ==
[2017-09-29] MEDS ORDERED: PROPOFOL 10 MG/ML VIAL IV ONE (08:57)
[2017-09-29] MEDS ORDERED: LIDOCAINE 2% MDV (20MG/ML) 20ML VIAL IV ONE (08:57)
[2017-09-29] MEDS ORDERED: MIDAZOLAM HCL 2MG/2ML VIAL IV ONE (08:57)
[2017-09-29] MEDS ORDERED: FENTANYL PF 100MCG/2ML VIAL IV ONE (08:57)
--- NOTE | 2017-09-30 12:40 | Operative Note ---
DATE OF SURGERY: 09/29/2017 OPERATION: ESOPHAGOGASTRODUODENOSCOPY with biopsy. PREOPERATIVE DIAGNOSIS: Melena, dyspepsia. POSTOPERATIVE DIAGNOSES: 1. Gastritis. 2. Duodenitis. 3. Irregular Z line/GERD. 4. Small hiatal hernia. PROCEDURE: After informed consent was obtained from the patient, she was placed in the left lateral decubitus position in the endoscopy suite, sedated and monitored by the department of anesthesia. A well-lubricated [id number] gastroscope was placed in the posterior oropharynx and under direct visualization passed to the proximal esophagus. The endoscope was advanced through the proximal, mid, and distal esophagus. The GE junction was irregular. There were no varices seen. The remainder of the esophagus was unremarkable. The gastric body demonstrated normal distensibility. There were patchy erythematous changes and superficial erosions of the antrum. The pylorus was unremarkable. The duodenal bulb and sweep demonstrated edematous changes primarily at the apex of the sweep and in the bulb. The actual sweep itself just had mild erythematous changes. No ulcers were seen. No evidence of celiac noted. J-turn views of the proximal stomach revealed mild diffuse erythema. The endoscope was straightened. Antral biopsies were obtained. No excessive bleeding was noted. GE junction biopsies were obtained. Again there was a small hiatal hernia noted. The endoscope removed from the patient with no additional abnormalities identified. RECOMMENDATIONS: The patient has multiple lifestyle modifications he clearly needs to make. He also has been noncompliant with the use of insulin which I am sure is contributing to many of his health issues. I would suggest he start a PPI in place of an H2 anayeli and Carafate. In addition, some of his symptoms may very well be related to autonomic diarrhea, as he has bouts of dizziness and near syncope which may be related to autonomic dysregulation and dysfunction. This also could explain his chronic diarrhea. He had been tested in the past for colitis and colonoscopy with random biopsy which were negative for microscopic changes or inflammatory bowel disease. At some point, he should undergo repeat colonoscopy given that he did have an adenomatous polyp in 2011. I will discuss this with him further. As always, thank you for allowing me to participate in the healthcare of your patients. CC: GERDA Zamora
== END 2017-09-29 11:10 | disposition home or self-care (01) ==
LOC: HOP 08:56
PROVIDERS: ATTEND Internal Medicine Gastroenterology
DX: K29.70 Gastritis, unspecified, without bleeding (principal); K44.9 Diaphragmatic hernia without obstruction or gangrene; K29.80 Duodenitis without bleeding; K21.9 Gastro-esophageal reflux disease without esophagitis; J44.9 Chronic obstructive pulmonary disease, unspecified; I10 Essential (primary) hypertension; Z79.4 Long term (current) use of insulin; E78.00 Pure hypercholesterolemia, unspecified; E11.40 Type 2 diabetes mellitus with diabetic neuropathy, unspecified
CPT/HCPCS: 43239; 00731; J3010

== ENCOUNTER 2018-08-01 19:36 | Emergency (ER) | payer MEDICAID ==
--- NOTE | 2018-08-01 19:53 | Emergency Department Record ---
History of Present Illness - General Chief complaint: Lower Extremity Pain Stated complaint: RT LEG PAIN Time Seen by Provider: 08/01/18 19:47 Source: Patient Mode of Arrival: Ambulatory Limitations: No limitations - History of Present Illness Initial comments: 53 yo male presents to ED for evaluation of worsening pain and tingling to the right lower extremity following angioplasty 07/17/[address] Saldivar, symptoms have been present for 4-5 days. Patient reports history of DM and tobacco use, denies injury or cold exposure. MD Complaint: Extremity pain Onset/Timin -: Days(s) Location: Right, Lower Leg History of Same: Yes Radiation: None Quality: Aching Consistency: Constant Improves with: Nothing Worsens with: Nothing Associated Symptoms: Denies other symptoms - Related Data Previous Rx's Medication Instructions Recorded Inhaler, Assist Devices [Space 1 each ASDIR #1 spacer 05/05/15 Chamber Plus] Allergies Allergy/AdvReac Type Severity Reaction Status Date / Time bee pollen Allergy HIVES Verified 08/01/18 19:44 egg Allergy HIVES Verified 08/01/18 19:44 sitagliptin phosphate AdvReac Severe pancreatiti Verified 08/01/18 19:44 [From Januvia] s metformin AdvReac Intermediate HEADACHE Verified 08/01/18 19:44 nicotine AdvReac Intermediate skin rash Verified 08/01/18 19:44 and irritation tiotropium bromide AdvReac Mild nose bleeds Verified 08/01/18 19:44 [From Spiriva with HandiHaler] Review of Systems Constitutional: Denies: Chills, Fever, Malaise, Night sweats Eyes: Denies: Eye discharge, Eye pain ENT: Denies: Congestion, Ear pain, Epistaxis Respiratory: Denies: Cough, Dyspnea Cardiovascular: Denies: Chest pain, Dyspnea on exertion Endocrine: Denies: Fatigue, Heat or cold intolerance Gastrointestinal: Denies: Abdominal pain, Nausea, Vomiting Genitourinary: Denies: Incontinence, Retention Musculoskeletal: Reports: Myalgia. Denies: Arthralgia, Back pain, Gout, Joint swelling Skin: Denies: Bruising, Change in color Neurological: Reports: Numbness, Tingling. 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" - GI Hx GI Disorders: Yes Hx Abdominal Pain: Yes Hx Diverticulitis: Yes Hx Reflux: Yes Hx Nausea/Vomiting: Yes Hx Pancreatitis: Yes Hx Ulcer: Yes (esophageal) Hx of Polyps: Yes Comment:: gastritis/esophagitis - Hx Genitourinary Disorders: No Comment:: frequent urination - ENDOCRINE Hx Endocrine Disorders: Yes Hx Diabetes: Yes - MUSCULOSKELETAL Hx Musculoskeletal Disorders: Yes Hx Arthritis: Yes - PSYCH Hx Psych Problems: Yes Hx Anxiety: Yes Hx Depression: Yes - HEMATOLOGY/ONCOLOGY Hx Hematology/Oncology Disorders: No Family Medical History Hx Alcohol Use: Mother, Brother/Sister Hx Anxiety: Mother, Brother/Sister, Grandparents Hx Cancer: Grandparents Hx Dementia: Grandparents Hx Depression: Mother, Brother/Sister Hx Diabetes: Mother, Brother/Sister Hx Heart Disease: Mother Hx HTN: Father, Mother, Brother/Sister, Grandparents Hx Resp Disorders: Mother Hx Stroke: Grandparents Physical Exam - General General Appearance: Alert, Oriented x3, Cooperative, Mild distress Limitations: No limitations - Head Head exam: Atraumatic, Normocephalic, Normal inspection Head exam detail: negative: Abrasion, Contusion, Bee's sign, General tenderness, Hematoma, Laceration - Eye Eye exam: Normal appearance. negative: Conjunctival injection, Periorbital swelling, Periorbital tenderness, Scleral icterus - ENT Ear exam: negative: Auricular hematoma, Auricular trauma Nasal Exam: negative: Active bleeding, Discharge, Dried blood, Foreign body Mouth exam: negative: Drooling, Laceration, Muffled voice, Tongue elevation - Neck Neck exam: Normal inspection. negative: Meningismus, Tenderness - Respiratory Respiratory exam: Normal lung sounds bilaterally. negative: Respiratory distress, Rhonchi, Stridor - Cardiovascular Cardiovascular Exam: Regular rate, Normal rhythm, Normal heart sounds Peripheral Pulses: 1+: Dorsalis Pedis (R), Dorsalis Pedis (L) - GI/Abdominal GI/Abdominal exam: Soft. negative: Rebound, Rigid, Tenderness - Rectal Rectal exam: Deferred - exam: Deferred - Extremities Extremities exam: Other (Cool to the touch bilaterally). negative: Calf tenderness, Pedal edema, Tenderness - Back Back exam: Denies: CVA tenderness (R), CVA tenderness (L) - Neurological Neurological exam: Alert, Oriented X3, Other (Ambulates with cane) - Psychiatric Psychiatric exam: Normal affect, Normal mood - Skin Skin exam: Normal color. negative: Abrasion Type of lesion: negative: abrasion Course - Reevaluation(s) Reevaluation #1: 08/01/18 19:51 Case was discussed with Dr. Ng, will accept transfer for arterial doppler examination. Disposition Disposition: Transfer Clinical Impression: PVD (peripheral vascular disease) Lower extremity pain Qualifiers: Laterality: right Qualified Code(s): M79.604 - Pain in right leg Diabetes mellitus, insulin dependent (IDDM), uncontrolled Qualifiers: Glycemic state: with hypoglycemia Coma presence: without coma Qualified Code(s) : E10.649 - Type 1 diabetes mellitus with hypoglycemia without coma Disposition: Acute Care Hospital Transfer Transfer To: [facility] Reason For Transfer: Arterial Doppler Examination Accepting Physician: Berenice Time Discussed w/Accepting Physician: 19:53 Condition: (2) Stable Time of Disposition: 19:53 Quality - Quality Measures Quality Measures: N/A - Blood Pressure Screening Does Patient Have Any of the Following: Active Dx of HTN Systolic Measurement: ~ Screening for High Blood Pressure: Patient Exclusion, Hx of HTN [[id number]]
== END 2018-08-01 20:18 | disposition short-term general hospital (02) ==
LOC: ER 19:36
DX: I73.9 Peripheral vascular disease, unspecified (principal); M79.661 Pain in right lower leg; E11.9 Type 2 diabetes mellitus without complications; I10 Essential (primary) hypertension; J44.9 Chronic obstructive pulmonary disease, unspecified; F17.210 Nicotine dependence, cigarettes, uncomplicated; Z98.62 Peripheral vascular angioplasty status
CPT/HCPCS: 99283; 99284